=== PATIENT | female | born 1945 | race Caucasian/White ===

== ENCOUNTER 2016-12-29 16:19 | Observation (INO) | payer MEDICARE, OTHER ==
[2016-12-29] MEDS ORDERED: Sodium Chloride 0.9% 1,000 ML IV ONE (16:46)
[2016-12-29] MEDS ORDERED: Sodium Chloride 0.9% 2.5 ML Syringe FLUSH PRN (16:46)
[2016-12-29] MEDS ORDERED: Ketorolac 30 MG/ML SDV IVPUSH ONE (16:46)
[2016-12-29] MEDS ORDERED: Sodium Chloride 0.9% 10 ML Syringe FLUSH PRN (16:46)
--- NOTE | 2016-12-29 16:50 | EDM.PDOC ---
[id number] Chief Complaint: Chest Pain Stated Complaint: CHEST PAIN Time Seen by Provider: 12/29/16 16:25 - Related Data Allergies Allergy/AdvReac Type Severity Reaction Status Date / Time amoxicillin Allergy Hives Verified 12/29/16 16:24 Penicillins Allergy Hives Verified 12/29/16 16:24 IV contrast Allergy Hives Uncoded 12/29/16 18:49 Home Meds: Home Meds Aspirin 81 mg PO DAILY 11/02/15 [History] Levothyroxine 75 mcg PO DAILY 11/02/15 [History] Course - Vital Signs Last Recorded V/S: Last Vital Signs Temp 36.6 C 12/30/16 04:00 Pulse 60 12/30/16 04:00 Resp 14 12/30/16 04:00 BP 108/52 L 12/30/16 04:00 Pulse Ox 96 12/30/16 04:00 - Orders/Labs/Meds Orders: Active Orders 24 hr Category Date Time Status Cardiac Monitoring [RC] Q8H Care 12/29/16 16:44 Active EKG Documentation Completion [RC] STAT Care 12/29/16 16:44 Active Pulse Oximetry [RC] ASDIRECTED Care 12/29/16 16:44 Active Ang Chest [CT] Stat Exams 12/29/16 17:52 Taken Chest 2V [CR] Stat Exams 12/29/16 16:46 Taken Sodium Chloride 0.9% [Saline Flush] Med 12/29/16 16:46 Active 10 ml FLUSH ASDIRECTED PRN Sodium Chloride 0.9% [Saline Flush] Med 12/29/16 16:46 Active 2.5 ml FLUSH ASDIRECTED PRN Saline Lock Insert [OM.PC] Stat Oth 12/29/16 16:44 Ordered Medication Orders Acetaminophen (Tylenol) 650 mg PO Q4H PRN PRN Reason: Pain (Mild 1-3)/fever Aspirin (Aspirin) 81 mg PO DAILY [facility] Levothyroxine Sodium (Levothyroxine) 75 mcg PO DAILY@0700 LIBAN Last Admin: 12/30/16 06:43 Dose: 75 mcg Oxycodone/Acetaminophen (Percocet 325-10 Mg) 1 tab PO Q4H PRN PRN Reason: Pain Last Admin: 12/29/16 22:40 Dose: 1 tab Sodium Chloride (Saline Flush) 10 ml FLUSH ASDIRECTED PRN PRN Reason: Keep Vein Open Last Admin: 12/29/16 17:02 Dose: 10 ml Sodium Chloride (Saline Flush) 2.5 ml FLUSH ASDIRECTED PRN PRN Reason: Keep Vein Open Last Admin: 12/29/16 17:02 Dose: 2.5 ml Temazepam (Restoril) 15 mg PO BEDTIME PRN PRN Reason: Sleep Labs: Laboratory Tests 12/29/16 12/29/16 12/29/16 Range/Units 16:32 16:32 16:32 WBC 11.51 H (4.0-11.0) K/uL RBC 4.07 L (4.30-5.90) M/uL Hgb 13.1 (12.0-16.0) g/dL Hct 39.1 (36.0-46.0) % MCV 96.1 (80.0-98.0) fL MCH 32.2 H (27.0-32.0) pg MCHC 33.5 (31.0-37.0) g/dL RDW Std Deviation 48.8 (28.0-62.0) fl RDW Coeff of Nadine 14 (11.0-15.0) % Plt Count 203 (150-400) K/uL MPV 9.80 (7.40-12.00) fL Neut % (Auto) 77.5 (48.0-80.0) % Lymph % (Auto) 12.7 L (16.0-40.0) % [place] % (Auto) 8.0 (0.0-15.0) % Eos % (Auto) 1.6 (0.0-7.0) % Baso % (Auto) 0.2 (0.0-1.5) % Neut # (Auto) 8.9 H (1.4-5.7) K/uL Lymph # (Auto) 1.5 (0.6-2.4) K/uL [place] # (Auto) 0.9 H (0.0-0.8) K/uL Eos # (Auto) 0.2 (0.0-0.7) K/uL Baso # (Auto) 0.0 (0.0-0.1) K/uL Nucleated RBC % 0.0 /100WBC Nucleated RBCs # 0 K/uL INR 0.96 (0.86-1.11) D-Dimer, Quantitative 0.90 H (0.0-0.52) mg/LFEU Lactate 0.9 (0.20-2.00) mmol/L Sodium (136-146) mmol/L Potassium (3.5-5.1) mmol/L Chloride (98-110) mmol/L Carbon Dioxide (21-31) mmol/L BUN (6.0-23.0) mg/dL Creatinine (0.6-1.5) mg/dL Est Cr Clr Drug Dosing mL/min Estimated GFR (MDRD) ml/min Glucose (60-110) mg/dL Calcium (8.8-10.8) mg/dL Total Bilirubin (0.1-1.5) mg/dL AST (5-40) IU/L ALT (8-54) IU/L Alkaline Phosphatase (40-150) Troponin I (0.0-0.29) NG/ML Total Protein (6.0-8.0) g/dL Albumin (3.4-4.8) g/dL Globulin (2.0-3.5) g/dL Albumin/Globulin Ratio (1.3-2.8) Urine Color Urine Appearance Urine pH (5.0-8.0) Ur Specific [place] (1.001-1.035) Urine Protein (NEGATIVE) mg/dL Urine Glucose (UA) (NEGATIVE) mg/dL Urine Ketones (NEGATIVE) mg/dL Urine Occult Blood (NEGATIVE) Urine Nitrite (NEGATIVE) Urine Bilirubin (NEGATIVE) Urine Urobilinogen (<2.0) EU/dL Ur Leukocyte Esterase (NEGATIVE) Urine RBC (0-2/HPF) Urine WBC (0-5/HPF) Ur Epithelial Cells (NONE-FEW) Urine Bacteria (NEGATIVE) 12/29/16 12/29/16 12/29/16 Range/Units 16:32 16:32 18:44 WBC (4.0-11.0) K/uL RBC (4.30-5.90) M/uL Hgb (12.0-16.0) g/dL Hct (36.0-46.0) % MCV (80.0-98.0) fL MCH (27.0-32.0) pg MCHC (31.0-37.0) g/dL RDW Std Deviation (28.0-62.0) fl RDW Coeff of Nadine (11.0-15.0) % Plt Count (150-400) K/uL MPV (7.40-12.00) fL Neut % (Auto) (48.0-80.0) % Lymph % (Auto) (16.0-40.0) % [place] % (Auto) (0.0-15.0) % Eos % (Auto) (0.0-7.0) % Baso % (Auto) (0.0-1.5) % Neut # (Auto) (1.4-5.7) K/uL Lymph # (Auto) (0.6-2.4) K/uL [place] # (Auto) (0.0-0.8) K/uL Eos # (Auto) (0.0-0.7) K/uL Baso # (Auto) (0.0-0.1) K/uL Nucleated RBC % /100WBC Nucleated RBCs # K/uL INR (0.86-1.11) D-Dimer, Quantitative (0.0-0.52) mg/LFEU Lactate (0.20-2.00) mmol/L Sodium 138 (136-146) mmol/L Potassium 4.1 (3.5-5.1) mmol/L Chloride 106 (98-110) mmol/L Carbon Dioxide 20 L (21-31) mmol/L BUN 14 (6.0-23.0) mg/dL Creatinine 1.2 (0.6-1.5) mg/dL Est Cr Clr Drug Dosing 36.05 mL/min Estimated GFR (MDRD) 44.0 ml/min Glucose 105 (60-110) mg/dL Calcium 9.6 (8.8-10.8) mg/dL Total Bilirubin 0.8 (0.1-1.5) mg/dL AST 16 (5-40) IU/L ALT 11 (8-54) IU/L Alkaline Phosphatase 66 (40-150) Troponin I < 0.10 (0.0-0.29) NG/ML Total Protein 8.6 H (6.0-8.0) g/dL Albumin 4.0 (3.4-4.8) g/dL Globulin 4.6 H (2.0-3.5) g/dL Albumin/Globulin Ratio 0.9 L (1.3-2.8) Urine Color YELLOW Urine Appearance CLEAR Urine pH 7.0 (5.0-8.0) Ur Specific [place] <= 1.005 (1.001-1.035) Urine Protein NEGATIVE (NEGATIVE) mg/dL Urine Glucose (UA) NEGATIVE (NEGATIVE) mg/dL Urine Ketones NEGATIVE (NEGATIVE) mg/dL Urine Occult Blood NEGATIVE (NEGATIVE) Urine Nitrite NEGATIVE (NEGATIVE) Urine Bilirubin NEGATIVE (NEGATIVE) Urine Urobilinogen 0.2 (<2.0) EU/dL Ur Leukocyte Esterase NEGATIVE (NEGATIVE) Urine RBC 0-1 (0-2/HPF) Urine WBC 0-1 (0-5/HPF) Ur Epithelial Cells OCCASIONAL (NONE-FEW) Urine Bacteria RARE (NEGATIVE) Meds: Medications Generic Name Dose Route Start Last Admin Trade Name Elijahq PRN Reason Stop Dose Admin Acetaminophen 650 mg 12/29/16 22:13 Tylenol PO Q4H PRN Pain (Mild 1-3)/fever Aspirin 81 mg 12/30/16 09:00 Aspirin PO DAILY LIBAN Levothyroxine Sodium 75 mcg 12/30/16 07:00 12/30/16 06:43 Levothyroxine PO 75 mcg DAILY@0700 LIBAN Administration Oxycodone/Acetaminophen 1 tab 12/29/16 22:13 12/29/16 22:40 Percocet 325-10 Mg PO 1 tab Q4H PRN Administration Pain Sodium Chloride 10 ml 12/29/16 16:46 12/29/16 17:02 Saline Flush FLUSH 10 ml ASDIRECTED PRN Administration Keep Vein Open Sodium Chloride 2.5 ml 12/29/16 16:46 12/29/16 17:02 Saline Flush FLUSH 2.5 ml ASDIRECTED PRN Administration Keep Vein Open Temazepam 15 mg 12/29/16 22:13 Restoril PO BEDTIME PRN Sleep Discontinued Medications Generic Name Dose Route Start Last Admin Trade Name Freq PRN Reason Stop Dose Admin Aspirin 81 mg 12/29/16 22:15 12/29/16 22:30 Aspirin PO Not Given DAILY LIBAN Diphenhydramine HCl 50 mg 12/29/16 18:13 12/29/16 18:35 Benadryl IVPUSH 12/29/16 18:14 50 mg ONETIME ONE Administration Sodium Chloride 1,000 mls @ 999 mls/hr 12/29/16 16:46 12/29/16 17:03 Normal Saline IV 12/29/16 17:46 999 mls/hr STAT ONE Administration Iodixanol 50 ml 12/29/16 18:20 12/29/16 18:22 Visipaque 320 IVPUSH 12/29/16 18:21 50 ml ONETIME STA Administration Ketorolac Tromethamine 30 mg 12/29/16 16:46 12/29/16 17:02 Toradol IVPUSH 12/29/16 16:47 30 mg ONETIME ONE Administration Levothyroxine Sodium 750 mcg 12/30/16 09:00 Levothyroxine PO DAILY LIBAN Methylprednisolone Sodium Succinate 125 mg 12/29/16 18:13 12/29/16 18:34 Solu-Medrol IVPUSH 12/29/16 18:14 125 mg ONETIME ONE Administration Departure - Departure Time of Disposition: 20:16 Disposition: Admitted As Inpatient 64 Condition: good Clinical Impression: Right-sided chest wall pain, COPD (chronic obstructive pulmonary disease) - My Orders Last 24 Hours: My Active Orders 12/29/16 16:44 Cardiac Monitoring [RC] Q8H EKG Documentation Completion [RC] STAT Pulse Oximetry [RC] ASDIRECTED Saline Lock Insert [OM.PC] Stat 12/29/16 16:46 Chest 2V [CR] Stat Sodium Chloride 0.9% [Saline Flush] 10 ml FLUSH ASDIRECTED PRN Sodium Chloride 0.9% [Saline Flush] 2.5 ml FLUSH ASDIRECTED PRN 12/29/16 17:52 Ang Chest [CT] Stat - Assessment/Plan Last 24 Hours: My Active Orders 12/29/16 16:44 Cardiac Monitoring [RC] Q8H EKG Documentation Completion [RC] STAT Pulse Oximetry [RC] ASDIRECTED Saline Lock Insert [OM.PC] Stat 12/29/16 16:46 Chest 2V [CR] Stat Sodium Chloride 0.9% [Saline Flush] 10 ml FLUSH ASDIRECTED PRN Sodium Chloride 0.9% [Saline Flush] 2.5 ml FLUSH ASDIRECTED PRN 12/29/16 17:52 Ang Chest [CT] Stat <Tasha Smith - Last Filed: 12/30/16 07:02> ED HPI GENERAL MEDICAL PROBLEM - History of Present Illness INITIAL COMMENTS - FREE TEXT/NARRATIVE: HISTORY AND PHYSICAL: History of present illness: The patient is a 71-year-old female who presents with complaints of right lateral chest wall pain that started yesterday about 4 PM. According to the patient she had a normal day yesterday and was at work and just felt somewhat fatigued and run down and left work at the usual time and around 4 PM she started feeling this discomfort which gradually started and increased. She felt more pain with certain movements and with deep breaths but she had no cough fever chills left-sided chest pain vomiting or abdominal pain. She has no flank pain or urinary complaints of hematuria dysuria or frequency. She still has her gallbladder but has had no history of food intolerance. Patient said she took some Tylenol and did not sleep very well as it was discomforting but she woke up this morning and felt a little better so she went to work. As the day progressed she said the pain was getting worse and she came here for evaluation. She has had no recent trauma to the area and has had no recent upper respiratory infections. The patient is a smoker for a long period time and has not had a smokers cough or any diagnosed pulmonary or cardiac disorders. She says if she lays on that right side she also feels more short of breath and more discomfort. Patient says that she feels short of breath because she cannot take a deep breath due to the pain. Patient has not noticed any rashes in the area and has no midline back pain. The patient states she has a history of breaking ribs on the right side in the past long since healed and it was not recently. Review of systems: As per history of present illness and below otherwise all systems reviewed and negative. Past medical history: As per history of present illness and as reviewed below otherwise noncontributory. Surgical history: As per history of present illness and as reviewed below otherwise noncontributory. Social history: No reported history of drug or alcohol abuse. Family history: As per history of present illness and as reviewed below otherwise noncontributory. Physical exam: General: Well-developed thin female who is nontoxic and speaking clearly without breathlessness. Vital signs have been noted by me. HEENT: Atraumatic, normocephalic, pupils reactive, negative for conjunctival pallor or scleral icterus, mucous membranes dry, throat clear, neck supple, nontender, trachea midline. There is no cervical adenopathy or nuchal rigidity, at the left submandibular area the patient has an old right ovary mobile mass which she says she has had for years and is not new. Lungs: Clear to auscultation with some diminished breath sounds in the bases, breath sounds equal bilaterally, chest nontender--on palpation I am unable to reproduce the pain in the area she says is discomforting and there is no rash redness crepitus or palpable abnormalities. Heart: S1S2, regular, negative for clicks, rubs, or JVD. Abdomen: Soft, nondistended, nontender. Bowel sounds are normoactive and there is specifically no right upper quadrant tenderness, throughout the exam there is no rebound or guarding Negative for masses or hepatosplenomegaly. Negative for costovertebral tenderness. Pelvis: Stable nontender. Genitourinary: Deferred. Rectal: Deferred. Extremities: Atraumatic, negative for cords or calf pain. Neurovascular unremarkable. There is no pedal edema or leg asymmetry Neuro: Awake, alert, oriented. Cranial nerves II through XII unremarkable. Cerebellum unremarkable. Motor and sensory unremarkable throughout. Exam nonfocal. Diagnostics: EKG chest x-ray CBC CMP d-dimer INR lactic acid troponin UA Therapeutics: IV fluids Toradol The patient never mentioned to me or to nursing that she had an allergy to IV dye. She states that she gets a rash and she mentioned this when she was down in the CT scan room. She's been premedicated with Benadryl and Solu-Medrol. Impression: Right Chest wall/pleuritic pain, intractable; COPD Definitive disposition and diagnosis as appropriate pending reevaluation and review of above. Right Chest to Right Jaw Pain Score (Numeric/FACES): 5 Past Medical History HEENT History: Reports: Impaired vision Cardiovascular History: Reports: Other (see below) Other Cardiovascular History: Transferred to [place] for chest pain last year Respiratory History: Reports: Bronchitis, recurrent, COPD [employer] History: Reports: - Past Surgical History Endocrine Surgical History: Reports: Thyroidectomy Social & Family History - Family History Family Medical History: Unobtainable - Tobacco Use Smoking Status *Q: Current Every Day Smoker Years of Tobacco use: 55 Packs/Tins Daily: 1 - Recreational Drug Use Recreational Drug Use: No Drug Use in Last 12 Months: No ED ROS GENERAL - Review of Systems Review Of Systems: ROS reveals no pertinent complaints other than HPI. ED EXAM, GENERAL - Physical Exam Exam: See Below (See dictation) Course - Orders/Labs/Meds Labs: Laboratory Tests 12/29/16 12/29/16 12/29/16 Range/Units 16:32 16:32 16:32 WBC 11.51 H (4.0-11.0) K/uL RBC 4.07 L (4.30-5.90) M/uL Hgb 13.1 (12.0-16.0) g/dL Hct 39.1 (36.0-46.0) % MCV 96.1 (80.0-98.0) fL MCH 32.2 H (27.0-32.0) pg MCHC 33.5 (31.0-37.0) g/dL RDW Std Deviation 48.8 (28.0-62.0) fl RDW Coeff of Nadine 14 (11.0-15.0) % Plt Count 203 (150-400) K/uL MPV 9.80 (7.40-12.00) fL Neut % (Auto) 77.5 (48.0-80.0) % Lymph % (Auto) 12.7 L (16.0-40.0) % [place] % (Auto) 8.0 (0.0-15.0) % Eos % (Auto) 1.6 (0.0-7.0) % Baso % (Auto) 0.2 (0.0-1.5) % Neut # (Auto) 8.9 H (1.4-5.7) K/uL Lymph # (Auto) 1.5 (0.6-2.4) K/uL [place] # (Auto) 0.9 H (0.0-0.8) K/uL Eos # (Auto) 0.2 (0.0-0.7) K/uL Baso # (Auto) 0.0 (0.0-0.1) K/uL Nucleated RBC % 0.0 /100WBC Nucleated RBCs # 0 K/uL INR 0.96 (0.86-1.11) D-Dimer, Quantitative 0.90 H (0.0-0.52) mg/LFEU Lactate 0.9 (0.20-2.00) mmol/L Sodium (136-146) mmol/L Potassium (3.5-5.1) mmol/L Chloride (98-110) mmol/L Carbon Dioxide (21-31) mmol/L BUN (6.0-23.0) mg/dL Creatinine (0.6-1.5) mg/dL Est Cr Clr Drug Dosing mL/min Estimated GFR (MDRD) ml/min Glucose (60-110) mg/dL Calcium (8.8-10.8) mg/dL Total Bilirubin (0.1-1.5) mg/dL AST (5-40) IU/L ALT (8-54) IU/L Alkaline Phosphatase (40-150) Troponin I (0.0-0.29) NG/ML Total Protein (6.0-8.0) g/dL Albumin (3.4-4.8) g/dL Globulin (2.0-3.5) g/dL Albumin/Globulin Ratio (1.3-2.8) Urine Color Urine Appearance Urine pH (5.0-8.0) Ur Specific [place] (1.001-1.035) Urine Protein (NEGATIVE) mg/dL Urine Glucose (UA) (NEGATIVE) mg/dL Urine Ketones (NEGATIVE) mg/dL Urine Occult Blood (NEGATIVE) Urine Nitrite (NEGATIVE) Urine Bilirubin (NEGATIVE) Urine Urobilinogen (<2.0) EU/dL Ur Leukocyte Esterase (NEGATIVE) Urine RBC (0-2/HPF) Urine WBC (0-5/HPF) Ur Epithelial Cells (NONE-FEW) Urine Bacteria (NEGATIVE) 12/29/16 12/29/16 12/29/16 Range/Units 16:32 16:32 18:44 WBC (4.0-11.0) K/uL RBC (4.30-5.90) M/uL Hgb (12.0-16.0) g/dL Hct (36.0-46.0) % MCV (80.0-98.0) fL MCH (27.0-32.0) pg MCHC (31.0-37.0) g/dL RDW Std Deviation (28.0-62.0) fl RDW Coeff of Nadine (11.0-15.0) % Plt Count (150-400) K/uL MPV (7.40-12.00) fL Neut % (Auto) (48.0-80.0) % Lymph % (Auto) (16.0-40.0) % [place] % (Auto) (0.0-15.0) % Eos % (Auto) (0.0-7.0) % Baso % (Auto) (0.0-1.5) % Neut # (Auto) (1.4-5.7) K/uL Lymph # (Auto) (0.6-2.4) K/uL [place] # (Auto) (0.0-0.8) K/uL Eos # (Auto) (0.0-0.7) K/uL Baso # (Auto) (0.0-0.1) K/uL Nucleated RBC % /100WBC Nucleated RBCs # K/uL INR (0.86-1.11) D-Dimer, Quantitative (0.0-0.52) mg/LFEU Lactate (0.20-2.00) mmol/L Sodium 138 (136-146) mmol/L Potassium 4.1 (3.5-5.1) mmol/L Chloride 106 (98-110) mmol/L Carbon Dioxide 20 L (21-31) mmol/L BUN 14 (6.0-23.0) mg/dL Creatinine 1.2 (0.6-1.5) mg/dL Est Cr Clr Drug Dosing 36.05 mL/min Estimated GFR (MDRD) 44.0 ml/min Glucose 105 (60-110) mg/dL Calcium 9.6 (8.8-10.8) mg/dL Total Bilirubin 0.8 (0.1-1.5) mg/dL AST 16 (5-40) IU/L ALT 11 (8-54) IU/L Alkaline Phosphatase 66 (40-150) Troponin I < 0.10 (0.0-0.29) NG/ML Total Protein 8.6 H (6.0-8.0) g/dL Albumin 4.0 (3.4-4.8) g/dL Globulin 4.6 H (2.0-3.5) g/dL Albumin/Globulin Ratio 0.9 L (1.3-2.8) Urine Color YELLOW Urine Appearance CLEAR Urine pH 7.0 (5.0-8.0) Ur Specific [place] <= 1.005 (1.001-1.035) Urine Protein NEGATIVE (NEGATIVE) mg/dL Urine Glucose (UA) NEGATIVE (NEGATIVE) mg/dL Urine Ketones NEGATIVE (NEGATIVE) mg/dL Urine Occult Blood NEGATIVE (NEGATIVE) Urine Nitrite NEGATIVE (NEGATIVE) Urine Bilirubin NEGATIVE (NEGATIVE) Urine Urobilinogen 0.2 (<2.0) EU/dL Ur Leukocyte Esterase NEGATIVE (NEGATIVE) Urine RBC 0-1 (0-2/HPF) Urine WBC 0-1 (0-5/HPF) Ur Epithelial Cells OCCASIONAL (NONE-FEW) Urine Bacteria RARE (NEGATIVE) Meds: Medications Generic Name Dose Route Start Last Admin Trade Name Freq PRN Reason Stop Dose Admin Acetaminophen 650 mg 12/29/16 22:13 Tylenol PO Q4H PRN Pain (Mild 1-3)/fever Aspirin 81 mg 12/30/16 09:00 Aspirin PO DAILY LIBAN Levothyroxine Sodium 75 mcg 12/30/16 07:00 12/30/16 06:43 Levothyroxine PO 75 mcg DAILY@0700 LIBAN Administration Oxycodone/Acetaminophen 1 tab 12/29/16 22:13 12/29/16 22:40 Percocet 325-10 Mg PO 1 tab Q4H PRN Administration Pain Sodium Chloride 10 ml 12/29/16 16:46 12/29/16 17:02 Saline Flush FLUSH 10 ml ASDIRECTED PRN Administration Keep Vein Open Sodium Chloride 2.5 ml 12/29/16 16:46 12/29/16 17:02 Saline Flush FLUSH 2.5 ml ASDIRECTED PRN Administration Keep Vein Open Temazepam 15 mg 12/29/16 22:13 Restoril PO BEDTIME PRN Sleep Discontinued Medications Generic Name Dose Route Start Last Admin Trade Name Freq PRN Reason Stop Dose Admin Aspirin 81 mg 12/29/16 22:15 12/29/16 22:30 Aspirin PO Not Given DAILY LIBAN Diphenhydramine HCl 50 mg 12/29/16 18:13 12/29/16 18:35 Benadryl IVPUSH 12/29/16 18:14 50 mg ONETIME ONE Administration Sodium Chloride 1,000 mls @ 999 mls/hr 12/29/16 16:46 12/29/16 17:03 Normal Saline IV 12/29/16 17:46 999 mls/hr STAT ONE Administration Iodixanol 50 ml 12/29/16 18:20 12/29/16 18:22 Visipaque 320 IVPUSH 12/29/16 18:21 50 ml ONETIME STA Administration Ketorolac Tromethamine 30 mg 12/29/16 16:46 12/29/16 17:02 Toradol IVPUSH 12/29/16 16:47 30 mg ONETIME ONE Administration Levothyroxine Sodium 750 mcg 12/30/16 09:00 Levothyroxine PO DAILY LIBAN Methylprednisolone Sodium Succinate 125 mg 12/29/16 18:13 12/29/16 18:34 Solu-Medrol IVPUSH 12/29/16 18:14 125 mg ONETIME ONE Administration Departure - Departure Condition: good
[2016-12-29] MEDS ORDERED: methylPREDNISolone Sodium Succinate 125 MG/2 ML SDV IVPUSH ONE (18:13)
[2016-12-29] MEDS ORDERED: diphenhydrAMINE 50 MG/ML SDV IVPUSH ONE (18:13)
[2016-12-29] MEDS ORDERED: Iodixanol 652 MG/ML 50 ML Vial IVPUSH STA (18:20)
--- NOTE | 2016-12-29 22:12 | PCM.HP ---
H&P History of Present Illness - General Date of Service: 12/29/16 Admit Problem/Dx: Admission Diagnosis/Problem Admission Diagnosis/Problem Chest pain Source of Information: Patient, Family, Old records, Provider - History of Present Illness Initial Comments - Free Text/Narative: she presented with right sided chest pain x greater than 24 hours. It hurts to take a deep breath. Right Chest to Right Jaw Pain Score (Numeric/FACES): 6 - Related Data Allergies/Adverse Reactions: Allergies Allergy/AdvReac Type Severity Reaction Status Date / Time amoxicillin Allergy Hives Verified 12/29/16 16:24 Penicillins Allergy Hives Verified 12/29/16 16:24 IV contrast Allergy Hives Uncoded 12/29/16 18:49 Home Medications: Home Meds Aspirin 81 mg PO DAILY 11/02/15 [History] Levothyroxine 0.75 mg PO DAILY 11/02/15 [History] Past Medical History HEENT History: Reports: Impaired vision Cardiovascular History: Reports: Other (see below) Other Cardiovascular History: Transferred to [place] for chest pain last year Respiratory History: Reports: Bronchitis, recurrent, COPD [employer]ER History: Reports: Neurological History: Denies: Alzheimers disease, Brain injury, Cerebral palsy Endocrine/Metabolic History: Denies: [place]'s disease, Diabetes, type I, Diabetes, type II Oncologic (Cancer) History: Reports: None - Past Surgical History Endocrine Surgical History: Reports: Thyroidectomy Social & Family History - Family History Family Medical History: Unobtainable - Tobacco Use Smoking Status *Q: Current Every Day Smoker Years of Tobacco use: 55 Packs/Tins Daily: 1 - Recreational Drug Use Recreational Drug Use: No Drug Use in Last 12 Months: No H&P Review of Systems - Review of Systems: Review Of Systems: See Below General: Denies: fever HEENT: Denies: sore throat Pulmonary: Reports: Cough (she had a cough over a week ago; it seems to have resolved.). Denies: Shortness of Breath, Wheezing Cardiovascular: Reports: chest pain (right sided) Gastrointestinal: Denies: Abdominal pain, Black stool, Hematemesis, Hematochezia , Nausea, Stool incontinence Genitourinary: Denies: dysuria, hematuria Skin: Denies: cyanosis Psychiatric: Denies: confusion Exam - Exam Exam: See Below - Vital Signs Vital Signs: Last Vital Signs Temp 97.8 F 12/29/16 22:00 Pulse 76 12/29/16 22:00 Resp 18 12/29/16 22:00 BP 156/70 H 12/29/16 22:00 Pulse Ox 94 L 12/29/16 22:00 Weight: 59.1 kg - Exam General: alert, oriented, cooperative HEENT: EOMI Neck: supple, trachea midline, lymphadenopathy Lungs: Clear to auscultation, Normal respiratory effort. No: Crackles, Rales Cardiovascular: regular rate, regular rhythm Abdomen: soft. No: rebound, tenderness (Female) Exam: Deferred Rectal (Female) Exam: Deferred Extremities: No: edema Neuro Extensive - Motor, Sensory, Reflexes: CN II-XII intact Psychiatric: alert, normal affect Physical Exam Comments:: slight tenderness over the right lateral chest. - Patient Data Result Diagrams: 12/29/16 16:32 12/29/16 16:32 *Q Meaningful Use (ADM) - VTE *Q VTE Criteria *Q: - Stroke *Q Stroke Criteria *Q: - AMI *Q AMI Criteria *Q: - Problem List (1) Right-sided chest wall pain SNOMED Code(s): 109049322 ICD Code: R07.89 - OTHER CHEST PAIN Status: Acute Current Visit: Yes Problem List Initiated/Reviewed/Updated: Yes Orders Last 24hrs: Medication Orders Sodium Chloride (Saline Flush) 10 ml FLUSH ASDIRECTED PRN PRN Reason: Keep Vein Open Last Admin: 12/29/16 17:02 Dose: 10 ml Sodium Chloride (Saline Flush) 2.5 ml FLUSH ASDIRECTED PRN PRN Reason: Keep Vein Open Last Admin: 12/29/16 17:02 Dose: 2.5 ml Assessment/Plan Comment:: observation serial enzymes
[2016-12-29] MEDS ORDERED: Acetaminophen 325 MG Tab PO PRN (22:13)
[2016-12-29] MEDS ORDERED: Temazepam 15 MG Cap PO PRN (22:13)
[2016-12-29] MEDS ORDERED: Aspirin 81 MG Tab.Chew PO SCH (22:15)
[2016-12-29] MEDS: Acetaminophen/oxyCODONE 325-10 MG Tab PO PRN (22:40)
[2016-12-30] MEDS ORDERED: Levothyroxine 25 MCG Tab PO SCH ×2 (07:00→09:00)
[2016-12-30 08:14] VITALS: BP 127/49
[2016-12-30] MEDS ORDERED: Aspirin 81 MG Tab.Chew PO SCH (09:00)
[2016-12-30] MEDS: Acetaminophen/oxyCODONE 325-10 MG Tab PO PRN (09:03)
--- NOTE | 2016-12-30 12:07 | PCM.DCSUM1 ---
[id number] - Discharge Data Discharge Date: 12/30/16 Discharge Disposition: Home, Self-Care 01 Condition: Fair - Discharge Diagnosis/Problem(s) (1) Right-sided chest wall pain SNOMED Code(s): 729673495 ICD Code: R07.89 - OTHER CHEST PAIN Status: Acute - Patient Summary/Data Hospital Course: She was given percocet for pain. She had adequate pain control at discharge. She reported that recently she had a cough that is improved. However she has right sided chest pain near the area of the right lower axilla; it hurts to cough. Serial troponins were normal she is improved at discharge. Impression musculoskeletal chest wall pain thought related to prior URI with coughing which improved spontaneously. Percocet 10/ 325 1 po q 4 hours prn #20; discussed risk of addiction Sven Shannon MD - Discharge Plan Prescriptions/Med Rec: oxyCODONE HCl/Acetaminophen [Percocet 10-325 mg Tablet] 1 each PO Q4H PRN #20 tablet PRN Reason: Pain Home Medications: Home Meds Aspirin 81 mg PO DAILY 11/02/15 [History] Levothyroxine 75 mcg PO DAILY 11/02/15 [History] oxyCODONE HCl/Acetaminophen [Percocet 10-325 mg Tablet] 1 each PO Q4H PRN #20 tablet 12/30/16 [Rx] Patient Handouts: Acetaminophen; Oxycodone tablets, Chest Wall Pain, Easy-to- Read - Patient Data Vitals - Most Recent: Last Vital Signs Temp 97.1 F 12/30/16 08:00 Pulse 70 12/30/16 08:00 Resp 16 12/30/16 08:00 BP 127/49 L 12/30/16 08:00 Pulse Ox 92 L 12/30/16 08:00 Weight - Most Recent: 59.1 kg I&O - Last 24 hours: Intake & Output 12/29/16 12/30/16 12/30/16 22:59 06:59 14:59 Intake Total 450 Output Total 500 Balance -50 Lab Results - Last 24 hrs: Laboratory Results - last 24 hr 12/29/16 12/30/16 12/30/16 Range/Units 23:15 05:00 05:00 Magnesium 1.8 (1.5-2.3) mEq/L Troponin I < 0.10 < 0.10 (0.0-0.29) NG/ML Med Orders - Current: Current Medications Acetaminophen (Tylenol) 650 mg PO Q4H PRN PRN Reason: Pain (Mild 1-3)/fever Aspirin (Aspirin) 81 mg PO DAILY [facility] Last Admin: 12/30/16 08:59 Dose: 81 mg Levothyroxine Sodium (Levothyroxine) 75 mcg PO DAILY@0700 [facility] Last Admin: 12/30/16 06:43 Dose: 75 mcg Oxycodone/Acetaminophen (Percocet 325-10 Mg) 1 tab PO Q4H PRN PRN Reason: Pain Last Admin: 12/30/16 09:03 Dose: 1 tab Sodium Chloride (Saline Flush) 10 ml FLUSH ASDIRECTED PRN PRN Reason: Keep Vein Open Last Admin: 12/29/16 17:02 Dose: 10 ml Sodium Chloride (Saline Flush) 2.5 ml FLUSH ASDIRECTED PRN PRN Reason: Keep Vein Open Last Admin: 12/29/16 17:02 Dose: 2.5 ml Temazepam (Restoril) 15 mg PO BEDTIME PRN PRN Reason: Sleep Discontinued Medications Aspirin (Aspirin) 81 mg PO DAILY [facility] Last Admin: 12/29/16 22:30 Dose: Not Given Diphenhydramine HCl (Benadryl) 50 mg IVPUSH ONETIME ONE Stop: 12/29/16 18:14 Last Admin: 12/29/16 18:35 Dose: 50 mg Sodium Chloride (Normal Saline) 1,000 mls @ 999 mls/hr IV STAT ONE Stop: 12/29/16 17:46 Last Admin: 12/29/16 17:03 Dose: 999 mls/hr Iodixanol (Visipaque 320) 50 ml IVPUSH ONETIME STA Stop: 12/29/16 18:21 Last Admin: 12/29/16 18:22 Dose: 50 ml Ketorolac Tromethamine (Toradol) 30 mg IVPUSH ONETIME ONE Stop: 12/29/16 16:47 Last Admin: 12/29/16 17:02 Dose: 30 mg Levothyroxine Sodium (Levothyroxine) 750 mcg PO DAILY [facility] Methylprednisolone Sodium Succinate (Solu-Medrol) 125 mg IVPUSH ONETIME ONE Stop: 03/24/17 18:14 Last Admin: 12/29/16 18:34 Dose: 125 mg - Exam General: Reports: alert, oriented *Q Meaningful Use (DIS) - VTE *Q VTE Criteria *Q: - Stroke *Q Stroke Criteria *Q: - AMI *Q AMI Criteria *Q:
--- NOTE | 2017-01-01 15:10 | CR ---
EXAM DATE: 12/29/16 PATIENT'S AGE: 71 Patient: BERNARD MARTÍNEZ Facility: [place], [place] Site . Site : 1945 Study: XRay Chest [id number] 5:27:04 PM Ordering Physician: Sarah Cordova Final Report: INDICATION: Pain, shortness of breath TECHNIQUE: Chest 2 views. COMPARISON: November 02, 2015 FINDINGS: Cardiovascular and mediastinum: Heart size and vasculature are normal in caliber and appearance. Mediastinum is within normal limits. Lungs and pleural spaces: Chronic appearing increased interstitial markings at both lung bases. Bi apical pleural thickening likely due to prior granulomatous disease. No sign of new infiltrate or mass. No sign of pleural effusion. No pneumothorax. Bones and soft tissues: Dextroscoliosis of the thoracic spine. IMPRESSION: No sign of acute disease. Dictated by Kiki Matson MD @ Dec 29 2016 5:51PM (Electronic Signature) Report Signed by Proxy and Original Signed Document filed in the Medical Record. MTDD
--- NOTE | 2017-01-01 15:11 | CT ---
EXAM DATE: 12/29/16 PATIENT'S AGE: 71 Patient: BERNARD MARTÍNEZ Facility: [place], [place] Site . Site : 1945 Study: CT Chest Angio [id number]/24/2017 6:41:53 PM Ordering Physician: Sarah Cordova Final Report: INDICATION: Right-sided chest pain, positive D-dimer TECHNIQUE: CT chest pulmonary PE protocol acquired with 50 cc Visipaque a IV contrast. COMPARISON: None FINDINGS: Cardiovascular structures: Normal vascular enhancement of the pulmonary arteries , no sign of pulmonary embolism. Heart size is normal. Minimal coronary artery calcifications. No sign of aneurysm or dissection in the thoracic aorta. Small hiatal hernia. Mediastinum and yumiko: No mass or adenopathy. Lungs: Emphysema. Honeycombing at both lung bases. Pleura and pericardium: No effusions. Chest wall and axilla: 1.1 centimeter left hilar lymph node. Shotty mediastinal and right hilar lymph nodes. Upper abdomen: Unremarkable. Bones: No significant findings. IMPRESSION: 1. No pulmonary embolism, aortic dissection, or pneumonia. 2. Emphysema with honeycombing at both lung bases. 3. Left hilar adenopathy of unknown etiology. 4. Coronary artery disease. 5. Small hiatal hernia. Dictated by Kiki Matson MD @ Dec 29 2016 7:03PM (Electronic Signature) Report Signed by Proxy and Original Signed Document filed in the Medical Record. [facility] HOSPITALNarayan
== END 2016-12-30 13:30 | disposition home or self-care (01) ==
LOC: MW.ED 16:19 → MW.MS 20:17
PROVIDERS: ADMIT Family Medicine; ATTEND Family Medicine
DX: R07.89 Other chest pain (principal); J44.9 Chronic obstructive pulmonary disease, unspecified; Z88.0 Allergy status to penicillin; Z88.1 Allergy status to other antibiotic agents; F17.200 Nicotine dependence, unspecified, uncomplicated; Z91.041 Radiographic dye allergy status; Z79.82 Long term (current) use of aspirin; Z79.899 Other long term (current) drug therapy
CPT/HCPCS: 36415; 71020; 71275; 80053; 81001; 83605; 83735; 84484; 85025; 85379; 85610; 93005; 96361; 96374; 96375; 99285; A9270; G0378; J1200; J1885; J2930; J7040; Q9967

== ENCOUNTER 2017-05-31 17:15 | Inpatient (IN) | payer MEDICARE, OTHER ==
[2017-05-31] MEDS ORDERED: Levofloxacin/Dextrose 5%-Water 750 MG in Premix Bag 1 BAG IV SCH (17:45)
[2017-05-31] MEDS ORDERED: Albuterol 0.083% 2.5 MG/3 ML Neb Soln NEB PRN (17:45)
[2017-05-31] MEDS ORDERED: Ondansetron 4 MG Tab.DIS PO PRN (17:45)
[2017-05-31] MEDS: Sodium Chloride 0.9% 1,000 ML IV SCH (18:00)
--- NOTE | 2017-05-31 18:00 | PCM.HP ---
H&P History of Present Illness - General Date of Service: 05/31/17 Admit Problem/Dx: Admission Diagnosis/Problem Admission Diagnosis/Problem Pneumonia Source of Information: Patient History Limitations: Reports: No Limitations - History of Present Illness Initial Comments - Free Text/Narative: 72-year-old female with a medical history of hypothyroidism that is being admitted with pneumonia. Patient was transferred from [place] for further treatment of pneumonia that does not seem to be improving despite antibiotic therapy. Patient has been seen in the clinic multiple times in [place] over the past week and has been placed on ceftriaxone and azithromycin but she states that her symptoms have not improved. She has also been tried on an oral steroid which helped her feel better for a day and then her symptoms returned and have worsened over the past week. Patient endorses a dry cough and no hemoptysis. She is short of breath but denies any orthopnea. She endorses weakness and notes that she has not been eating or drinking much over the past week. She has had multiple loose stools on a daily basis and has had to wear adult diapers because of this. She denies any blood in the stool or urine and denies any black stools. She has no history of gastric ulcers. She has felt feverish although she does not have a documented temperature. She also has had a headache treated with Tylenol which seems to help. Patient denies any abdominal pain and denies any chest pain, palpitations or wheezing. She does have a significant history of tobacco use over many years smoking 1 pack per day. She does not currently have asthma or COPD and does not require the use of inhalers. She is not required any supplemental oxygen with the onset of the symptoms. She has no cardiac history. She denies any peripheral edema. Patient does not have a history of recurrent pneumonia. She states that up until this week she has been in good health. No records were sent with the patient from [place]. We will be doing a full workup on the patient as a direct admit. - Related Data Allergies/Adverse Reactions: Allergies Allergy/AdvReac Type Severity Reaction Status Date / Time amoxicillin Allergy Hives Verified 12/29/16 16:24 Penicillins Allergy Hives Verified 12/29/16 16:24 IV contrast Allergy Hives Uncoded 12/29/16 18:49 Home Medications: Home Meds Aspirin 81 mg PO DAILY 11/02/15 [History] Levothyroxine 75 mcg PO DAILY 11/02/15 [History] oxyCODONE HCl/Acetaminophen [Percocet 10-325 mg Tablet] 1 each PO Q4H PRN #20 tablet 12/30/16 [Rx] Past Medical History HEENT History: Reports: Impaired Vision Cardiovascular History: Reports: Other (See Below) Other Cardiovascular History: Transferred to [place] for chest pain last year Respiratory History: Reports: Bronchitis, Recurrent, COPD STEM SHAPER History: Reports: Musculoskeletal History: Reports: Arthritis Oncologic (Cancer) History: Reports: None - Past Surgical History Endocrine Surgical History: Reports: Thyroidectomy Social & Family History - Family History Family Medical History: Unobtainable Cardiac: Reports: [place] [facility]: Reports: Musculoskeletal: Reports: Arthritis Neurological: Reports: Alzheimers Disease Oncologic: Reports: Colon, Prostate - Tobacco Use Smoking Status *Q: Current Every Day Smoker Years of Tobacco use: 50 Packs/Tins Daily: 1 Used Tobacco, but Quit: No Second Hand Smoke Exposure: No - Caffeine Use Caffeine Use: Reports: Coffee - Recreational Drug Use Recreational Drug Use: No Drug Use in Last 12 Months: No H&P Review of Systems - Review of Systems: Review Of Systems: See Below General: Reports: Fever, Weakness, Fatigue, Decreased Appetite HEENT: Reports: Headaches Pulmonary: Reports: Shortness of Breath. Denies: Wheezing, Cough, Hemoptysis Cardiovascular: Reports: No Symptoms Gastrointestinal: Reports: Diarrhea, Decreased Appetite. Denies: Nausea, Vomiting Genitourinary: Reports: No Symptoms Musculoskeletal: Reports: No Symptoms Skin: Reports: No Symptoms Psychiatric: Reports: No Symptoms Neurological: Reports: No Symptoms, Headache, Weakness Hematologic/Lymphatic: Reports: No Symptoms Immunologic: Reports: No Symptoms Exam - Exam Exam: See Below - Vital Signs Weight: 119 lb - Exam Quality Assessment: DVT Prophylaxis (SCDs. We will continue patient's home aspirin.) General: Alert, Oriented, 4 HEENT: Conjunctiva Clear, Hearing Intact, Mucosa Moist & [place], Posterior Pharynx Clear Neck: Supple, Trachea Midline, 2 Lungs: Normal Respiratory Effort, Decreased Breath Sounds (Diffusely and bilaterally in all lung fernandez) Cardiovascular: Regular Rate, Regular Rhythm GI/Abdominal Exam: Normal Bowel Sounds, Soft, Non-Tender, No Organomegaly, No Distention, No Abnormal Bruit, No Mass Extremities: Normal Inspection, Normal Range of Motion, Non-Tender, No Pedal Edema, Normal Capillary Refill Peripheral Pulses: 2+: Radial (L), Radial (R), Posterior Tibial (L), Posterior Tibial (R) Skin: Warm, Dry, Intact Neuro Extensive - Mental Status: Alert, Oriented x3, Normal Mood/Affect, Normal Cognition Psychiatric: Alert, Normal Affect, Normal Mood *Q Meaningful Use (ADM) - VTE *Q VTE Criteria *Q: - Stroke *Q Stroke Criteria *Q: - AMI *Q AMI Criteria *Q: - Problem List (1) Community acquired pneumonia SNOMED Code(s): 064726571 ICD Code: J18.9 - PNEUMONIA, UNSPECIFIED ORGANISM Status: Acute Current Visit: Yes Problem List Initiated/Reviewed/Updated: Yes Orders Last 24hrs: Active Orders 24 hr Category Date Time Status Patient Status [ADT] Routine ADT 05/31/17 17:45 Ordered Antiembolic Devices [RC] PER UNIT ROUTINE Care 05/31/17 17:48 Ordered Height and Weight [RC] DAILY Care 05/31/17 17:45 Ordered Intake and Output [RC] QSHIFT Care 05/31/17 17:46 Ordered Notify Provider Vital Signs [RC] ASDIRECTED Care 05/31/17 17:47 Ordered Oxygen Therapy [RC] PRN Care 05/31/17 17:45 Ordered Pulse Oximetry [RC] PRN Care 05/31/17 17:46 Ordered RT Aerosol Therapy [RC] ASDIRECTED Care 05/31/17 17:48 Ordered Up With Assistance [RC] ASDIRECTED Care 05/31/17 17:45 Ordered VTE/DVT Education [RC] PER UNIT ROUTINE Care 05/31/17 17:45 Ordered Vital Signs [RC] Q4H Care 05/31/17 17:45 Ordered PT Evaluation and Treatment [CONS] Routine Cons 05/31/17 17:45 Ordered Regular Diet [DIET] Diet 05/31/17 Breakfast Ordered Chest 2V [CR] Routine Exams 05/31/17 17:45 Ordered BASIC METABOLIC PANEL,BMP [CHEM] AM Lab 06/01/17 05:11 Ordered BASIC METABOLIC PANEL,BMP [CHEM] AM Lab 06/02/17 05:11 Ordered BASIC METABOLIC PANEL,BMP [CHEM] AM Lab 06/03/17 05:11 Ordered CBC WITH AUTO DIFF [HEME] AM Lab 06/01/17 05:11 Ordered CBC WITH AUTO DIFF [HEME] AM Lab 06/02/17 05:11 Ordered CBC WITH AUTO DIFF [HEME] AM Lab 06/03/17 05:11 Ordered CBC WITH AUTO DIFF [HEME] Routine Lab 05/31/17 17:45 Ordered CDIFF TOX A+B [OP] Routine Lab 05/31/17 17:45 Uncollected COMPREHENSIVE METABOLIC PN,CMP [CHEM] Routine Lab 05/31/17 17:45 Ordered CULTURE BLOOD [BC] Stat Lab 05/31/17 17:45 Ordered CULTURE SPUTUM + SMEAR [RM] Stat Lab 05/31/17 17:45 Uncollected CULTURE STOOL + CAMPY+SHIGATOX [RM] Routine Lab 05/31/17 17:45 Uncollected CULTURE URINE [RM] Stat Lab 05/31/17 17:45 Uncollected LACTIC ACID,WHOLE BLOOD [BG] Routine Lab 05/31/17 17:45 Ordered MAGNESIUM [CHEM] Routine Lab 05/31/17 17:45 Ordered PHOSPHORUS [CHEM] Routine Lab 05/31/17 17:45 Ordered UA W/MICROSCOPIC [URIN] Routine Lab 05/31/17 17:45 Uncollected WBC, STOOL [OP] Routine Lab 05/31/17 17:45 Uncollected Acetaminophen [Tylenol] Med 05/31/17 17:45 Ordered 650 mg PO Q4H PRN Albuterol [Proventil Neb Soln] Med 05/31/17 17:45 Ordered 2.5 mg NEB Q2H PRN Aspirin Med 06/01/17 09:00 Ordered 81 mg PO DAILY Levofloxacin/Dextrose 5%-Water [Levaquin in D5W 750 MG/ Med 05/31/17 17:45 Ordered 150 ML] 750 mg Premix Bag 1 bag IV Q24H Levothyroxine Med 06/01/17 09:00 Ordered 75 mcg PO DAILY Nicotine [Habitrol] Med 05/31/17 17:45 Ordered 21 mg TRDERM DAILY Ondansetron [Zofran ODT] Med 05/31/17 17:45 Ordered 4 mg PO Q4H PRN Sodium Chloride 0.9% @ 125 MLS/HR (1000ml) Med 05/31/17 17:45 Ordered Sodium Chloride 0.9% [Normal Saline] 1,000 ml IV ASDIRECTED Sequential Compression Device [OM.PC] Per Unit Routine Oth 05/31/17 17:47 Ordered Resuscitation Status Routine Resus Stat 05/31/17 17:45 Ordered Medication Orders Acetaminophen (Tylenol) 650 mg PO Q4H PRN PRN Reason: Pain (Mild 1-3)/fever Albuterol (Proventil Neb Soln) 2.5 mg NEB Q2H PRN PRN Reason: Shortness Of Breath/wheezing Aspirin (Aspirin) 81 mg PO DAILY [facility] Levofloxacin/Dextrose 750 mg/ (Premix) 150 mls @ 100 mls/hr IV Q24H [facility] Sodium Chloride (Normal Saline) 1,000 mls @ 125 mls/hr IV ASDIRECTED [facility] Levothyroxine Sodium (Levothyroxine) 75 mcg PO DAILY [facility] Nicotine (Habitrol) 21 mg TRDERM DAILY [facility] Ondansetron HCl (Zofran Odt) 4 mg PO Q4H PRN PRN Reason: nausea, able to take PO Assessment/Plan Comment:: 72-year-old female admitted with community-acquired pneumonia. #1. Community-acquired pneumonia: -No documentation was sent from the clinic in [place]. A full workup will be done on the patient including chest x-ray, EKG, CBC, CMP, lactate, blood cultures 2, urinalysis with urine cultures, sputum cultures. These are all pending. Medical care will be dependent on these results. -Ceftriaxone and azithromycin will be discontinued as the patient has not improved on this. She will be started on IV Levaquin daily. -As patient does have a significant history of tobacco use, we can consider treating her with Solu-Medrol for COPD exacerbation if she does not improve on IV Levaquin. -Duo nebs treatments are available as needed. #2. Diarrhea: -Stool cultures are pending. -Magnesium and phosphorus levels are pending. -Patient may require Imodium. -Patient will be maintained on normal saline at 125 mL/hour. Home medications have been restarted including daily aspirin. DVT prophylaxis: SCDs, home dose of aspirin. Discharge: 2-4 days pending improvement.
[2017-05-31] MEDS: Acetaminophen 325 MG Tab PO PRN ×3 (18:15→23:53)
[2017-05-31] MEDS: Nicotine 21 MG/24 Hr Patch TRDERM SCH (18:15)
[2017-05-31] MEDS ORDERED: Ibuprofen 200 MG Tab PO PRN (20:41)
[2017-06-01] MEDS: Sodium Chloride 0.9% 1,000 ML IV SCH (03:39)
[2017-06-01] MEDS: Aspirin 81 MG Tab.Chew PO SCH (08:13)
[2017-06-01] MEDS: Nicotine 21 MG/24 Hr Patch TRDERM SCH (08:13)
[2017-06-01] MEDS ORDERED: Levothyroxine 25 MCG Tab PO SCH (09:00)
--- NOTE | 2017-06-01 09:39 | CR ---
EXAM DATE: 05/31/17 PATIENT'S AGE: 72 Patient: BERNARD MARTÍNEZ Facility: [place], [place] Site . Site : 1945 Study: XRay Chest [id number]/24/2017 6:55:18 PM Ordering Physician: Isaura Thomas Final Report: INDICATIONS: Shortness of breath. Pneumonia. TECHNIQUE: Chest 2 view. COMPARISON: Chest radiograph December 29, 2016. FINDINGS: No pneumothorax or pleural effusion. Bibasilar scarring and atelectasis. Emphysema. Question new patchy opacity at the right costophrenic angle. Aortic atherosclerosis. Cardiac and mediastinal contours are otherwise within normal limits. Upper abdomen and osseous structures show no acute abnormality. IMPRESSION: Possible new mild opacity of the right costophrenic angle. Correlation for developing pneumonia in this region recommended. Otherwise stable chest radiograph. Dictated by Roverto Bateman MD @ 05/31/2017 7:02:35 PM Dictated by: Roverto Bateman MD @ 05/31/2017 19:02:49 (Electronic Signature) Report Signed by Proxy. [facility]
--- NOTE | 2017-06-01 10:33 | PCM.PN ---
- General Info Date of Service: 06/01/17 Admission Dx/Problem (Free Text): Admission Diagnosis/Problem Admission Diagnosis/Problem Pneumonia Subjective Update: Not feeling well this morning. Coughing some, non productive. No chest pain. But feels general malaise. No subjective fevers Functional Status: Reports: Pain Controlled, Tolerating Diet, Ambulating, Urinating - Review of Systems General: Reports: Malaise. Denies: Fever, Appetite (poor) HEENT: Reports: No Symptoms. Denies: Headaches Pulmonary: Reports: Cough. Denies: Shortness of Breath, Sputum, Hemoptysis, Wheezing Cardiovascular: Reports: No Symptoms. Denies: Chest Pain, Palpitations, Edema Gastrointestinal: Reports: No Symptoms. Denies: Abdominal Pain, Nausea, Vomiting Genitourinary: Reports: No Symptoms. Denies: Dysuria, Frequency Musculoskeletal: Reports: No Symptoms Skin: Reports: No Symptoms Neurological: Reports: No Symptoms Psychiatric: Reports: No Symptoms - Patient Data Vitals - Most Recent: Last Vital Signs Temp 98.4 F 06/01/17 08:00 Pulse 78 06/01/17 08:00 Resp 16 06/01/17 08:00 BP 125/60 06/01/17 08:00 Pulse Ox 98 06/01/17 08:00 Weight - Most Recent: 55.2 kg I&O - Last 24 Hours: Intake & Output 05/31/17 06/01/17 06/01/17 22:59 06:59 14:59 Intake Total 1320 Output Total 1600 Balance -280 Lab Results Last 24 Hours: Laboratory Results - last 24 hr 05/31/17 05/31/17 05/31/17 Range/Units 18:26 18:26 18:26 WBC 15.01 H (4.0-11.0) K/uL RBC 3.11 L (4.30-5.90) M/uL Hgb 9.8 L (12.0-16.0) g/dL Hct 29.0 L (36.0-46.0) % MCV 93.2 (80.0-98.0) fL MCH 31.5 (27.0-32.0) pg MCHC 33.8 (31.0-37.0) g/dL RDW Std Deviation 48.1 (28.0-62.0) fl RDW Coeff of Nadine 14 (11.0-15.0) % Plt Count 219 (150-400) K/uL MPV 9.20 (7.40-12.00) fL Add Manual Diff YES Neutrophils % (Manual) 66 (48.0-80.0) % Band Neutrophils % 2 % Lymphocytes % (Manual) 19 (16.0-40.0) % Monocytes % (Manual) 8 (0.0-15.0) % Eosinophils % (Manual) 5 (0.0-7.0) % Nucleated RBC % 0.0 /100WBC Absolute Seg Neuts 9.9 Band Neutrophils # 0.3 Lymphocytes # (Manual) 2.9 Monocytes # (Manual) 1.2 Eosinophils # (Manual) 0.8 Nucleated RBCs # 0 K/uL Lactate 0.6 (0.20-2.00) mmol/L Sodium 134 L (136-146) mmol/L Potassium 3.8 (3.5-5.1) mmol/L Chloride 105 (98-110) mmol/L Carbon Dioxide 21 (21-31) mmol/L BUN 21 (6.0-23.0) mg/dL Creatinine 1.2 (0.6-1.5) mg/dL Est Cr Clr Drug Dosing 35.05 mL/min Estimated GFR (MDRD) 43.9 ml/min Glucose 95 (60-110) mg/dL Calcium 8.3 L (8.8-10.8) mg/dL Phosphorus 2.9 (2.4-4.7) mg/dL Magnesium 1.5 (1.5-2.3) mEq/L Total Bilirubin 0.4 (0.1-1.5) mg/dL AST 13 (5-40) IU/L ALT 12 (8-54) IU/L Alkaline Phosphatase 59 (40-150) Total Protein 6.1 (6.0-8.0) g/dL Albumin 2.8 L (3.4-4.8) g/dL Globulin 3.3 (2.0-3.5) g/dL Albumin/Globulin Ratio 0.9 L (1.3-2.8) Urine Color Urine Appearance Urine pH (5.0-8.0) Ur Specific Macy (1.001-1.035) Urine Protein (NEGATIVE) mg/dL Urine Glucose (UA) (NEGATIVE) mg/dL Urine Ketones (NEGATIVE) mg/dL Urine Occult Blood (NEGATIVE) Urine Nitrite (NEGATIVE) Urine Bilirubin (NEGATIVE) Urine Urobilinogen (<2.0) EU/dL Ur Leukocyte Esterase (NEGATIVE) Urine RBC (0-2/HPF) Urine WBC (0-5/HPF) Ur Epithelial Cells (NONE-FEW) Urine Bacteria (NEGATIVE) 05/31/17 06/01/17 06/01/17 Range/Units 21:45 04:45 04:45 WBC 12.00 H (4.0-11.0) K/uL RBC 3.19 L (4.30-5.90) M/uL Hgb 9.8 L (12.0-16.0) g/dL Hct 29.8 L (36.0-46.0) % MCV 93.4 (80.0-98.0) fL MCH 30.7 (27.0-32.0) pg MCHC 32.9 (31.0-37.0) g/dL RDW Std Deviation 48.3 (28.0-62.0) fl RDW Coeff of Nadine 14 (11.0-15.0) % Plt Count 233 (150-400) K/uL MPV 9.40 (7.40-12.00) fL Add Manual Diff YES Neutrophils % (Manual) 81 H (48.0-80.0) % Band Neutrophils % 3 % Lymphocytes % (Manual) 9 L (16.0-40.0) % Monocytes % (Manual) 6 (0.0-15.0) % Eosinophils % (Manual) 1 (0.0-7.0) % Nucleated RBC % 0.0 /100WBC Absolute Seg Neuts 9.7 Band Neutrophils # 0.4 Lymphocytes # (Manual) 1.1 Monocytes # (Manual) 0.7 Eosinophils # (Manual) 0.1 Nucleated RBCs # 0 K/uL Lactate (0.20-2.00) mmol/L Sodium 140 (136-146) mmol/L Potassium 4.2 (3.5-5.1) mmol/L Chloride 113 H (98-110) mmol/L Carbon Dioxide 20 L (21-31) mmol/L BUN 18 (6.0-23.0) mg/dL Creatinine 1.1 (0.6-1.5) mg/dL Est Cr Clr Drug Dosing 39.03 mL/min Estimated GFR (MDRD) 48.6 ml/min Glucose 99 (60-110) mg/dL Calcium 8.0 L (8.8-10.8) mg/dL Phosphorus (2.4-4.7) mg/dL Magnesium (1.5-2.3) mEq/L Total Bilirubin (0.1-1.5) mg/dL AST (5-40) IU/L ALT (8-54) IU/L Alkaline Phosphatase (40-150) Total Protein (6.0-8.0) g/dL Albumin (3.4-4.8) g/dL Globulin (2.0-3.5) g/dL Albumin/Globulin Ratio (1.3-2.8) Urine Color YELLOW Urine Appearance CLEAR Urine pH 6.0 (5.0-8.0) Ur Specific Macy <= 1.005 (1.001-1.035) Urine Protein NEGATIVE (NEGATIVE) mg/dL Urine Glucose (UA) NEGATIVE (NEGATIVE) mg/dL Urine Ketones NEGATIVE (NEGATIVE) mg/dL Urine Occult Blood SMALL H (NEGATIVE) Urine Nitrite NEGATIVE (NEGATIVE) Urine Bilirubin NEGATIVE (NEGATIVE) Urine Urobilinogen 0.2 (<2.0) EU/dL Ur Leukocyte Esterase NEGATIVE (NEGATIVE) Urine RBC 0-1 (0-2/HPF) Urine WBC 0-3 (0-5/HPF) Ur Epithelial Cells OCCASIONAL (NONE-FEW) Urine Bacteria FEW (NEGATIVE) Med Orders - Current: Current Medications Acetaminophen (Tylenol) 650 mg PO Q4H PRN PRN Reason: Pain (Mild 1-3)/fever Last Admin: 05/31/17 23:53 Dose: 325 mg Albuterol (Proventil Neb Soln) 2.5 mg NEB Q2H PRN PRN Reason: Shortness Of Breath/wheezing Aspirin (Aspirin) 81 mg PO DAILY [facility] Last Admin: 06/01/17 08:13 Dose: 81 mg Levofloxacin/Dextrose 750 mg/ (Premix) 150 mls @ 100 mls/hr IV Q48H [facility] Ibuprofen (Motrin) 200 mg PO Q6H PRN PRN Reason: Pain Levothyroxine Sodium (Levothyroxine) 75 mcg PO ACBREAKFAST [facility] Nicotine (Habitrol) 21 mg TRDERM DAILY [facility] Last Admin: 06/01/17 08:13 Dose: 21 mg Ondansetron HCl (Zofran Odt) 4 mg PO Q4H PRN PRN Reason: nausea, able to take PO Discontinued Medications Levofloxacin/Dextrose 750 mg/ (Premix) 150 mls @ 100 mls/hr IV Q24H [facility] Last Admin: 05/31/17 18:14 Dose: 100 mls/hr Sodium Chloride (Normal Saline) 1,000 mls @ 125 mls/hr IV ASDIRECTED [facility] Last Admin: 06/01/17 03:39 Dose: 125 mls/hr Levothyroxine Sodium (Levothyroxine) 75 mcg PO DAILY [facility] Last Admin: 06/01/17 08:15 Dose: 75 mcg - Exam General: Alert, Oriented, Cooperative, No Acute Distress Neck: Supple, No JVD. No: Lymphadenopathy Lungs: Crackles (R base) Cardiovascular: Regular Rate, Regular Rhythm, No Murmurs GI/Abdominal Exam: Normal Bowel Sounds, Soft, Non-Tender, No Organomegaly, No Distention, No Abnormal Bruit, No Mass, Pelvis Stable Extremities: Normal Inspection, Normal Range of Motion, Non-Tender, No Pedal Edema, Normal Capillary Refill Neurological: No New Focal Deficit Psy/Mental Status: Alert, Normal Affect, Normal Mood - Problem List & Annotations (1) Community acquired pneumonia SNOMED Code(s): 278518929 Code(s): J18.9 - PNEUMONIA, UNSPECIFIED ORGANISM Status: Acute Current Visit: Yes (2) Hypothyroidism SNOMED Code(s): 18829695 Code(s): E03.9 - HYPOTHYROIDISM, UNSPECIFIED Status: Chronic Current Visit: Yes Qualifiers: Hypothyroidism type: unspecified Qualified Code(s): E03.9 - Hypothyroidism , unspecified (3) COPD (chronic obstructive pulmonary disease) SNOMED Code(s): 22082094 Code(s): J44.9 - CHRONIC OBSTRUCTIVE PULMONARY DISEASE, UNSPECIFIED Status : Chronic Current Visit: No Qualifiers: COPD type: chronic bronchitis Chronic bronchitis type: simple Qualified Code(s): J41.0 - Simple chronic bronchitis - Problem List Review Problem List Initiated/Reviewed/Updated: Yes - Plan Plan:: 72-year-old female admitted with community-acquired pneumonia. 1. Community-acquired pneumonia: Failed outpatient treatment. Continue Levaquin IV today. Continue supportive care with Oxygen PRN, Duonebs. No wheezing at this time, will not add steroid. 2. Diarrhea: Has not had any since admission. Will stop IVFs, eating and 3. COPD: Stable. no exacerbation at this time. 4. Hypothyroidism: Continue Levothyroxine. VTE prophylaxis: Lovenox. Discharge: 2-4 days pending improvement.
[2017-06-01] MEDS: Enoxaparin 40 MG/0.4 ML Syringe SUBCUT SCH (13:00)
[2017-06-02] MEDS: Levothyroxine 50 MCG Tab PO SCH (06:49)
--- NOTE | 2017-06-02 08:42 | PCM.PN ---
- Review of Systems Systems Review Comment:: feeling better, but not quite ready to go home. - Patient Data Vitals - Most Recent: Last Vital Signs Temp 36.7 C 06/02/17 08:00 Pulse 76 06/02/17 08:00 Resp 22 H 06/02/17 08:00 BP 118/56 L 06/02/17 08:00 Pulse Ox 98 06/02/17 08:00 Weight - Most Recent: 57 kg I&O - Last 24 Hours: Intake & Output 06/01/17 06/02/17 06/02/17 22:59 06:59 14:59 Intake Total 750 550 Output Total 2300 1250 Balance -1550 -700 Lab Results Last 24 Hours: Laboratory Results - last 24 hr 06/02/17 06/02/17 Range/Units 05:32 05:32 WBC 10.04 (4.0-11.0) K/uL RBC 3.30 L (4.30-5.90) M/uL Hgb 10.3 L (12.0-16.0) g/dL Hct 30.8 L (36.0-46.0) % MCV 93.3 (80.0-98.0) fL MCH 31.2 (27.0-32.0) pg MCHC 33.4 (31.0-37.0) g/dL RDW Std Deviation 47.9 (28.0-62.0) fl RDW Coeff of Nadine 14 (11.0-15.0) % Plt Count 248 (150-400) K/uL MPV 9.10 (7.40-12.00) fL Add Manual Diff YES Neutrophils % (Manual) 73 (48.0-80.0) % Band Neutrophils % 3 % Lymphocytes % (Manual) 16 (16.0-40.0) % Monocytes % (Manual) 5 (0.0-15.0) % Eosinophils % (Manual) 1 (0.0-7.0) % Basophils % (Manual) 2 H (0.0-1.5) % Nucleated RBC % 0.0 /100WBC Absolute Seg Neuts 7.3 Band Neutrophils # 0.3 Lymphocytes # (Manual) 1.6 Monocytes # (Manual) 0.5 Eosinophils # (Manual) 0.1 Basophils # (Manual) 0 Nucleated RBCs # 0 K/uL Sodium 137 (136-146) mmol/L Potassium 4.0 (3.5-5.1) mmol/L Chloride 109 (98-110) mmol/L Carbon Dioxide 22 (21-31) mmol/L BUN 13 (6.0-23.0) mg/dL Creatinine 1.0 (0.6-1.5) mg/dL Est Cr Clr Drug Dosing 42.93 mL/min Estimated GFR (MDRD) 54.2 ml/min Glucose 92 (60-110) mg/dL Calcium 8.4 L (8.8-10.8) mg/dL Jean-Claude Results Last 24 Hours: Microbiology 05/31/17 21:45 Urine Culture - Final Urine, Clean Catch No Growth 05/31/17 18:23 Aerobic Blood Culture - Preliminary Blood NO GROWTH AFTER 1 DAY Anaerobic Blood Culture - Preliminary NO GROWTH AFTER 1 DAY 05/31/17 18:11 Aerobic Blood Culture - Preliminary Blood NO GROWTH AFTER 1 DAY Anaerobic Blood Culture - Preliminary NO GROWTH AFTER 1 DAY 06/01/17 11:10 Influenza Type A Antigen Screen - Final Nasopharyngeal Swab - Nare, Right NEGATIVE INFLUENZA A VIRUS AG Influenza Type B Antigen Screen - Final NEGATIVE INFLUENZA B VIRUS AG Med Orders - Current: Current Medications Acetaminophen (Tylenol) 650 mg PO Q4H PRN PRN Reason: Pain (Mild 1-3)/fever Last Admin: 05/31/17 23:53 Dose: 325 mg Albuterol (Proventil Neb Soln) 2.5 mg NEB Q2H PRN PRN Reason: Shortness Of Breath/wheezing Aspirin (Aspirin) 81 mg PO DAILY [facility] Last Admin: 06/01/17 08:13 Dose: 81 mg Enoxaparin Sodium (Lovenox) 40 mg SUBCUT Q24H [facility] Last Admin: 06/01/17 13:00 Dose: 40 mg Levofloxacin/Dextrose 750 mg/ (Premix) 150 mls @ 100 mls/hr IV Q48H [facility] Ibuprofen (Motrin) 200 mg PO Q6H PRN PRN Reason: Pain Levothyroxine Sodium (Synthroid) 50 mcg PO ACBREAKFAST [facility] Last Admin: 06/02/17 06:49 Dose: 50 mcg Nicotine (Habitrol) 21 mg TRDERM DAILY [facility] Last Admin: 06/01/17 08:13 Dose: 21 mg Ondansetron HCl (Zofran Odt) 4 mg PO Q4H PRN PRN Reason: nausea, able to take PO Discontinued Medications Levofloxacin/Dextrose 750 mg/ (Premix) 150 mls @ 100 mls/hr IV Q24H [facility] Last Admin: 05/31/17 18:14 Dose: 100 mls/hr Sodium Chloride (Normal Saline) 1,000 mls @ 125 mls/hr IV ASDIRECTED [facility] Last Admin: 06/01/17 03:39 Dose: 125 mls/hr Levothyroxine Sodium (Levothyroxine) 75 mcg PO DAILY [facility] Last Admin: 06/01/17 08:15 Dose: 75 mcg - Exam General: Alert, Oriented Lungs: Clear to Auscultation, Normal Respiratory Effort Cardiovascular: Regular Rate, Regular Rhythm GI/Abdominal Exam: Soft, Non-Tender Extremities: Non-Tender, No Pedal Edema - Problem List Review Problem List Initiated/Reviewed/Updated: Yes - Plan Plan:: 72-year-old female admitted with community-acquired pneumonia. Community-acquired pneumonia: Failed outpatient treatment. Continue levaquin. Hypothyroidism: Continue Levothyroxine. VTE prophylaxis: Lovenox. Discharge: anticipate discharge tomorrow.
[2017-06-02] MEDS: Aspirin 81 MG Tab.Chew PO SCH (09:53)
[2017-06-02] MEDS: Nicotine 21 MG/24 Hr Patch TRDERM SCH (09:54)
[2017-06-02] MEDS: Enoxaparin 40 MG/0.4 ML Syringe SUBCUT SCH (12:40)
[2017-06-02] MEDS ORDERED: Levofloxacin/Dextrose 5%-Water 750 MG in Premix Bag 1 BAG IV SCH (18:00)
[2017-06-03] MEDS: Levothyroxine 50 MCG Tab PO SCH (06:42)
[2017-06-03 07:39] VITALS: BP 114/56
--- NOTE | 2017-06-03 08:01 | PCM.DCSUM1 ---
Discharge Summary - Discharge Data Discharge Date: 06/03/17 Discharge Disposition: Home, Self-Care 01 Condition: Good - Patient Summary/Data Consults: Consultations 05/31/17 17:45 PT Evaluation and Treatment [CONS] Routine Hospital Course: Admission diagnosis Community acquired pneumonia Hospital Course: 72 yo female who was directly admitted from [facility] for failed outpatient management of pneumonia. She had been treating with azithromycin. She continued to have worsening symptoms of malaise, and cough. WBC was 15,000 and Chest x-ray reported right basilar infiltrate. She was treated with Levaquin with improvement in symptoms. She is being discharged today on oral Levaquin and is to follow up with [facility] in [place]. - Patient Instructions Diet: Usual Diet as Tolerated Activity: As Tolerated - Discharge Plan Prescriptions/Med Rec: Levofloxacin [Levaquin] 750 mg PO Q48H #3 tab Home Medications: Home Meds Aspirin 81 mg PO DAILY 11/02/15 [History] Levothyroxine Sodium [Levo-T] 50 mcg PO ACBREAKFAST 06/01/17 [History] Levofloxacin [Levaquin] 750 mg PO Q48H #3 tab 06/03/17 [Rx] Referrals: [facility] [Outside] Mary Seymour PA [ED Midlevel Provider] - 06/07/17 1:00 pm - Patient Data Vitals - Most Recent: Last Vital Signs Temp 36.0 C 06/03/17 07:38 Pulse 62 06/03/17 07:38 Resp 22 H 06/03/17 07:38 BP 114/56 L 06/03/17 07:38 Pulse Ox 97 06/03/17 07:38 Weight - Most Recent: 56.5 kg I&O - Last 24 hours: Intake & Output 06/02/17 06/03/17 06/03/17 22:59 06:59 14:59 Intake Total 850 400 Output Total 1100 1500 Balance -250 -1100 Lab Results - Last 24 hrs: Laboratory Results - last 24 hr 06/03/17 06/03/17 Range/Units 05:10 05:10 WBC 8.77 (4.0-11.0) K/uL RBC 3.12 L (4.30-5.90) M/uL Hgb 9.8 L (12.0-16.0) g/dL Hct 29.2 L (36.0-46.0) % MCV 93.6 (80.0-98.0) fL MCH 31.4 (27.0-32.0) pg MCHC 33.6 (31.0-37.0) g/dL RDW Std Deviation 48.5 (28.0-62.0) fl RDW Coeff of Nadine 14 (11.0-15.0) % Plt Count 266 (150-400) K/uL MPV 9.10 (7.40-12.00) fL Neut % (Auto) 72.0 (48.0-80.0) % Lymph % (Auto) 14.0 L (16.0-40.0) % Ida % (Auto) 11.1 (0.0-15.0) % Eos % (Auto) 2.7 (0.0-7.0) % Baso % (Auto) 0.2 (0.0-1.5) % Neut # (Auto) 6.3 H (1.4-5.7) K/uL Lymph # (Auto) 1.2 (0.6-2.4) K/uL Ida # (Auto) 1.0 H (0.0-0.8) K/uL Eos # (Auto) 0.2 (0.0-0.7) K/uL Baso # (Auto) 0.0 (0.0-0.1) K/uL Nucleated RBC % 0.0 /100WBC Nucleated RBCs # 0 K/uL Sodium 136 (136-146) mmol/L Potassium 4.0 (3.5-5.1) mmol/L Chloride 108 (98-110) mmol/L Carbon Dioxide 21 (21-31) mmol/L BUN 12 (6.0-23.0) mg/dL Creatinine 1.1 (0.6-1.5) mg/dL Est Cr Clr Drug Dosing 39.03 mL/min Estimated GFR (MDRD) 48.6 ml/min Glucose 88 (60-110) mg/dL Calcium 8.3 L (8.8-10.8) mg/dL MARY Results - Last 24 hrs: Microbiology 05/31/17 18:23 Aerobic Blood Culture - Preliminary Blood NO GROWTH AFTER 2 DAYS Anaerobic Blood Culture - Preliminary NO GROWTH AFTER 2 DAYS 05/31/17 18:11 Aerobic Blood Culture - Preliminary Blood NO GROWTH AFTER 2 DAYS Anaerobic Blood Culture - Preliminary NO GROWTH AFTER 2 DAYS 05/31/17 21:45 Urine Culture - Final Urine, Clean Catch No Growth Med Orders - Current: Current Medications Acetaminophen (Tylenol) 650 mg PO Q4H PRN PRN Reason: Pain (Mild 1-3)/fever Last Admin: 05/31/17 23:53 Dose: 325 mg Albuterol (Proventil Neb Soln) 2.5 mg NEB Q2H PRN PRN Reason: Shortness Of Breath/wheezing Aspirin (Aspirin) 81 mg PO DAILY [facility] Last Admin: 06/02/17 09:53 Dose: 81 mg Enoxaparin Sodium (Lovenox) 40 mg SUBCUT Q24H [facility] Last Admin: 06/02/17 12:40 Dose: 40 mg Levofloxacin/Dextrose 750 mg/ (Premix) 150 mls @ 100 mls/hr IV Q48H [facility] Last Admin: 06/02/17 17:36 Dose: 100 mls/hr Ibuprofen (Motrin) 200 mg PO Q6H PRN PRN Reason: Pain Levothyroxine Sodium (Synthroid) 50 mcg PO ACBREAKFAST [facility] Last Admin: 06/03/17 06:42 Dose: 50 mcg Nicotine (Habitrol) 21 mg TRDERM DAILY [facility] Last Admin: 06/02/17 09:54 Dose: 21 mg Ondansetron HCl (Zofran Odt) 4 mg PO Q4H PRN PRN Reason: nausea, able to take PO Discontinued Medications Levofloxacin/Dextrose 750 mg/ (Premix) 150 mls @ 100 mls/hr IV Q24H [facility] Last Admin: 05/31/17 18:14 Dose: 100 mls/hr Sodium Chloride (Normal Saline) 1,000 mls @ 125 mls/hr IV ASDIRECTED [facility] Last Admin: 06/01/17 03:39 Dose: 125 mls/hr Levothyroxine Sodium (Levothyroxine) 75 mcg PO DAILY [facility] Last Admin: 06/01/17 08:15 Dose: 75 mcg *Q Meaningful Use (DIS) - VTE *Q VTE Criteria *Q: - Stroke *Q Stroke Criteria *Q: - AMI *Q AMI Criteria *Q:
[2017-06-03] MEDS: Nicotine 21 MG/24 Hr Patch TRDERM SCH (08:39)
[2017-06-03] MEDS: Aspirin 81 MG Tab.Chew PO SCH (08:39)
== END 2017-06-03 09:25 | disposition home or self-care (01) | DRG 195 ==
LOC: MW.MS 17:15
PROVIDERS: ADMIT Internal Medicine; ATTEND Internal Medicine
DX: J18.9 Pneumonia, unspecified organism (principal); R19.7 Diarrhea, unspecified; E03.9 Hypothyroidism, unspecified; J44.9 Chronic obstructive pulmonary disease, unspecified; F17.210 Nicotine dependence, cigarettes, uncomplicated; Z88.0 Allergy status to penicillin; Z91.041 Radiographic dye allergy status; Z88.1 Allergy status to other antibiotic agents; Z79.899 Other long term (current) drug therapy
CPT/HCPCS: 36415; 71020; 71020-26; 80048; 80053; 81001; 83605; 83735; 84100; 85025; 87040; 87086; 87804; 97161-GP; 97530-GP; A9270-GY; J1650; J1956; J7040

== ENCOUNTER 2017-09-05 09:51 | Observation (INO) | payer MEDICARE, OTHER ==
[2017-09-05] MEDS ORDERED: Sodium Chloride 0.9% 2.5 ML Syringe FLUSH PRN ×2 (10:02→14:45)
[2017-09-05] MEDS ORDERED: Sodium Chloride 0.9% 10 ML Syringe FLUSH PRN ×2 (10:02→14:45)
[2017-09-05] MEDS ORDERED: Ondansetron 4 MG/2 ML SDV IVPUSH ONE (10:16)
[2017-09-05] MEDS ORDERED: Morphine 2 MG/ML Syringe IVPUSH ONE (10:16)
[2017-09-05 10:56] LABS: CHLORIDE,CL 110 mmol/L (98-110); SODIUM,NA 141 mmol/L (136-146)
--- NOTE | 2017-09-05 10:59 | CT ---
EXAMINATION: Non contrast CT head. Coronal and sagittal reformats. HISTORY: Headache FINDINGS: No evidence of intra or extra axial hemorrhage, mass, midline shift, hydrocephalus or edema. Periven tricular and subcortical white matter hypodensities are noted. No hypoattenuation changes in the major vascular territories to suggest acute infarct. No abnormal intracranial calcifications are detected. No evidence of substantial vascular calcificat ions. Paranasal sinuses and mastoid air cells are well aerated without substantial findings. Pituitary fossa appears unremarkable. Old nasal bone fractures noted. There is a partially visualized 1.4 x 1.6 cm left parotid nodule. Calvarium is intact. No evidence of skull fracture. IMPRESSION: 1. No acute intracranial findings. 2. Mild small vessel ischemic changes. 2. Indeterminate partially visualized 1.4 x 1.6 cm left parotid nodule.
[2017-09-05] MEDS ORDERED: Meclizine 25 MG Tab PO ONE (11:15)
[2017-09-05] MEDS ORDERED: Metoclopramide 10 MG/2 ML SDV IV ONE (11:15)
--- NOTE | 2017-09-05 11:44 | EDM.PDOC ---
ED HPI GENERAL MEDICAL PROBLEM - General Chief Complaint: Headache Stated Complaint: SOB,NAUSEA Time Seen by Provider: 09/05/17 10:01 Source of Information: Reports: Patient History Limitations: Reports: No Limitations - History of Present Illness INITIAL COMMENTS - FREE TEXT/NARRATIVE: History of present illness: []Patient called an ambulance after feeling very dizzy and nauseated this morning that worsens with movement of her head. She does have a history of vertigo and states it feels the same. In the ambulance however she developed a severe headache which is not typical during her episodes of vertigo. She denies any head trauma, fevers, chills, visual changes, speech difficulty or numbness or tingling. Review of systems: As per history of present illness and below otherwise all systems reviewed and negative. Past medical history: As per history of present illness and as reviewed below otherwise noncontributory. Surgical history: As per history of present illness and as reviewed below otherwise noncontributory. Social history: No reported history of drug or alcohol abuse. Family history: As per history of present illness and as reviewed below otherwise noncontributory. Physical exam: General: Well developed, well nourished in NAD HEENT: Atraumatic, normocephalic, pupils reactive, negative for conjunctival pallor or scleral icterus, mucous membranes moist, throat clear, neck supple, nontender, trachea midline. Lungs: Clear to auscultation, breath sounds equal bilaterally, chest nontender. Heart: S1S2, regular, negative for clicks, rubs, or JVD. Abdomen: Soft, nondistended, nontender. Negative for masses or hepatosplenomegaly. Negative for costovertebral tenderness. Pelvis: Stable nontender. Genitourinary: Deferred. Rectal: Deferred. Extremities: Atraumatic, negative for cords or calf pain. Neurovascular unremarkable. Neuro: Awake, alert, oriented. Cranial nerves II through XII unremarkable. Cerebellum unremarkable. Motor and sensory unremarkable throughout. Exam nonfocal. Diagnostics: []CT head negative labs negative Therapeutics: []IV hydrated, morphine and meclizine given in the ED Impression: []Benign positional vertigo Plan: []Admit for observation as patient failed ambulation in the ED due to weakness and dizziness after treatment Definitive disposition and diagnosis as appropriate pending reevaluation and review of above. headache Pain Score (Numeric/FACES): 7 - Related Data Allergies Allergy/AdvReac Type Severity Reaction Status Date / Time amoxicillin Allergy Hives Verified 09/05/17 10:04 Penicillins Allergy Hives Verified 09/05/17 10:04 Sulfa (Sulfonamide Allergy Hives Verified 09/05/17 10:04 Antibiotics) IV contrast Allergy Hives Uncoded 09/05/17 10:04 Home Meds: Home Meds Aspirin 81 mg PO DAILY 11/02/15 [History] Levothyroxine Sodium [Levo-T] 50 mcg PO ACBREAKFAST 06/01/17 [History] Levofloxacin [Levaquin] 750 mg PO Q48H #3 tab 06/03/17 [Rx] Past Medical History HEENT History: Reports: Impaired Vision Cardiovascular History: Reports: Other (See Below) Other Cardiovascular History: Transferred to [place] for chest pain last year Respiratory History: Reports: Bronchitis, Recurrent, COPD 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: Musculoskeletal History: Reports: Arthritis Other Musculoskeletal History: in back Endocrine/Metabolic History: Reports: Hypothyroidism Oncologic (Cancer) History: Reports: None - Infectious Disease History Infectious Disease History: Reports: Shingles - Past Surgical History HEENT Surgical History: Reports: None Cardiovascular Surgical History: Reports: None Respiratory Surgical History: Reports: None Endocrine Surgical History: Reports: Thyroidectomy Social & Family History - Family History Family Medical History: Unobtainable Cardiac: Reports: [place] OBGYN: Reports: Musculoskeletal: Reports: Arthritis Neurological: Reports: Alzheimers Disease Oncologic: Reports: Colon, Prostate - Tobacco Use Smoking Status *Q: Former Smoker Years of Tobacco use: 50 Packs/Tins Daily: 1 Used Tobacco, but Quit: Yes Month Tobacco Last Used: 05/2017 Second Hand Smoke Exposure: No - Caffeine Use Caffeine Use: Reports: None - Recreational Drug Use Recreational Drug Use: No Drug Use in Last 12 Months: No ED ROS GENERAL - Review of Systems Review Of Systems: See Below (See history of present illness) ED EXAM, GENERAL - Physical Exam Exam: See Below (See history of present illness) Course - Vital Signs Last Recorded V/S: Last Vital Signs Temp 97.7 F 09/05/17 10:05 Pulse 58 L 09/05/17 12:25 Resp 16 09/05/17 11:40 BP 135/74 09/05/17 12:25 Pulse Ox 100 09/05/17 11:40 - Orders/Labs/Meds Orders: Active Orders 24 hr Category Date Time Status Patient Status [ADT] Stat ADT 09/05/17 13:12 Ordered EKG Documentation Completion [RC] STAT Care 09/05/17 10:02 Active Sodium Chloride 0.9% [Saline Flush] Med 09/05/17 10:02 Active 10 ml FLUSH ASDIRECTED PRN Sodium Chloride 0.9% [Saline Flush] Med 09/05/17 10:02 Active 2.5 ml FLUSH ASDIRECTED PRN Saline Lock Insert [OM.PC] Stat Oth 09/05/17 10:02 Ordered Medication Orders Sodium Chloride (Saline Flush) 10 ml FLUSH ASDIRECTED PRN PRN Reason: Keep Vein Open Last Admin: 09/05/17 10:26 Dose: 10 ml Sodium Chloride (Saline Flush) 2.5 ml FLUSH ASDIRECTED PRN PRN Reason: Keep Vein Open Last Admin: 09/05/17 10:26 Dose: 2.5 ml Labs: Laboratory Tests 09/05/17 09/05/17 09/05/17 Range/Units 10:17 10:17 12:48 WBC 8.31 (4.0-11.0) K/uL RBC 3.44 L (4.30-5.90) M/uL Hgb 11.1 L (12.0-16.0) g/dL Hct 34.0 L (36.0-46.0) % MCV 98.8 H (80.0-98.0) fL MCH 32.3 H (27.0-32.0) pg MCHC 32.6 (31.0-37.0) g/dL RDW Std Deviation 51.2 (28.0-62.0) fl RDW Coeff of Nadine 14 (11.0-15.0) % Plt Count 167 (150-400) K/uL MPV 9.50 (7.40-12.00) fL Neut % (Auto) 72.6 (48.0-80.0) % Lymph % (Auto) 13.8 L (16.0-40.0) % [place] % (Auto) 9.1 (0.0-15.0) % Eos % (Auto) 4.0 (0.0-7.0) % Baso % (Auto) 0.5 (0.0-1.5) % Neut # (Auto) 6.0 H (1.4-5.7) K/uL Lymph # (Auto) 1.2 (0.6-2.4) K/uL [place] # (Auto) 0.8 (0.0-0.8) K/uL Eos # (Auto) 0.3 (0.0-0.7) K/uL Baso # (Auto) 0.0 (0.0-0.1) K/uL Nucleated RBC % 0.0 /100WBC Nucleated RBCs # 0 K/uL Sodium 141 (136-146) mmol/L Potassium 4.3 (3.5-5.1) mmol/L Chloride 110 (98-110) mmol/L Carbon Dioxide 24 (21-31) mmol/L BUN 20 (6.0-23.0) mg/dL Creatinine 1.2 (0.6-1.5) mg/dL Est Cr Clr Drug Dosing 35.52 mL/min Estimated GFR (MDRD) 43.9 ml/min Glucose 107 (60-110) mg/dL Calcium 8.6 L (8.8-10.8) mg/dL Total Bilirubin 0.3 (0.1-1.5) mg/dL AST 10 (5-40) IU/L ALT 10 (8-54) IU/L Alkaline Phosphatase 54 (40-150) Troponin I < 0.10 (0.0-0.29) NG/ML Total Protein 6.9 (6.0-8.0) g/dL Albumin 3.5 (3.4-4.8) g/dL Globulin 3.4 (2.0-3.5) g/dL Albumin/Globulin Ratio 1.0 L (1.3-2.8) Urine Color YELLOW Urine Appearance CLEAR Urine pH 7.0 (5.0-8.0) Ur Specific [place] 1.015 (1.001-1.035) Urine Protein NEGATIVE (NEGATIVE) mg/dL Urine Glucose (UA) NEGATIVE (NEGATIVE) mg/dL Urine Ketones NEGATIVE (NEGATIVE) mg/dL Urine Occult Blood NEGATIVE (NEGATIVE) Urine Nitrite NEGATIVE (NEGATIVE) Urine Bilirubin NEGATIVE (NEGATIVE) Urine Urobilinogen 0.2 (<2.0) EU/dL Ur Leukocyte Esterase NEGATIVE (NEGATIVE) Urine RBC NONE SEEN (0-2/HPF) Urine WBC 0-1 (0-5/HPF) Ur Squamous Epith Cells FEW Urine Bacteria NOT SEEN (NEGATIVE) Meds: Medications Generic Name Dose Route Start Last Admin Trade Name Freq PRN Reason Stop Dose Admin Sodium Chloride 10 ml 09/05/17 10:02 09/05/17 10:26 Saline Flush FLUSH 10 ml ASDIRECTED PRN Administration Keep Vein Open Sodium Chloride 2.5 ml 09/05/17 10:02 09/05/17 10:26 Saline Flush FLUSH 2.5 ml ASDIRECTED PRN Administration Keep Vein Open Discontinued Medications Generic Name Dose Route Start Last Admin Trade Name Freq PRN Reason Stop Dose Admin Ketorolac Tromethamine 15 mg 09/05/17 12:04 09/05/17 12:28 Toradol IVPUSH 09/05/17 12:05 15 mg ONETIME ONE Administration Meclizine HCl 25 mg 09/05/17 11:15 09/05/17 11:31 Antivert PO 09/05/17 11:16 25 mg ONETIME ONE Administration Metoclopramide HCl 10 mg 09/05/17 11:15 09/05/17 11:31 Reglan IV 09/05/17 11:16 10 mg ONETIME ONE Administration Morphine Sulfate 4 mg 09/05/17 10:16 09/05/17 10:25 Morphine IVPUSH 09/05/17 10:17 4 mg ONETIME ONE Administration Ondansetron HCl 4 mg 09/05/17 10:16 09/05/17 10:25 Zofran IVPUSH 09/05/17 10:17 4 mg ONETIME ONE Administration Departure - Departure Time of Disposition: 13:14 Disposition: Admitted As Inpatient 64 Condition: Good Clinical Impression: Vertigo - Discharge Information Referrals: PCP,Unknown [Primary Care Provider] - Forms: ED Department Discharge - My Orders Last 24 Hours: My Active Orders 09/05/17 10:02 EKG Documentation Completion [RC] STAT Sodium Chloride 0.9% [Saline Flush] 10 ml FLUSH ASDIRECTED PRN Sodium Chloride 0.9% [Saline Flush] 2.5 ml FLUSH ASDIRECTED PRN Saline Lock Insert [OM.PC] Stat 09/05/17 13:12 Patient Status [ADT] Stat - Assessment/Plan Last 24 Hours: My Active Orders 09/05/17 10:02 EKG Documentation Completion [RC] STAT Sodium Chloride 0.9% [Saline Flush] 10 ml FLUSH ASDIRECTED PRN Sodium Chloride 0.9% [Saline Flush] 2.5 ml FLUSH ASDIRECTED PRN Saline Lock Insert [OM.PC] Stat 09/05/17 13:12 Patient Status [ADT] Stat
[2017-09-05] MEDS ORDERED: Ketorolac 30 MG/ML SDV IVPUSH ONE (12:04)
--- NOTE | 2017-09-05 14:44 | PCM.HP ---
H&P History of Present Illness headache Pain Score (Numeric/FACES): 5 - Related Data Allergies/Adverse Reactions: Allergies Allergy/AdvReac Type Severity Reaction Status Date / Time amoxicillin Allergy Hives Verified 09/05/17 10:04 Penicillins Allergy Hives Verified 09/05/17 10:04 Sulfa (Sulfonamide Allergy Hives Verified 09/05/17 10:04 Antibiotics) IV contrast Allergy Hives Uncoded 09/05/17 10:04 Home Medications: Home Meds Aspirin 81 mg PO DAILY 11/02/15 [History] Levothyroxine Sodium [Levo-T] 50 mcg PO ACBREAKFAST 06/01/17 [History] Past Medical History HEENT History: Reports: Impaired Vision Cardiovascular History: Reports: Other (See Below) Other Cardiovascular History: Transferred to [place] for chest pain last year Respiratory History: Reports: Bronchitis, Recurrent, COPD 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: Musculoskeletal History: Reports: Arthritis Other Musculoskeletal History: in back Endocrine/Metabolic History: Reports: Hypothyroidism Oncologic (Cancer) History: Reports: None - Infectious Disease History Infectious Disease History: Reports: Chicken Pox, Mumps, Shingles - Past Surgical History HEENT Surgical History: Reports: None Cardiovascular Surgical History: Reports: None Respiratory Surgical History: Reports: None Endocrine Surgical History: Reports: Thyroidectomy Social & Family History - Family History Family Medical History: Unobtainable Cardiac: Reports: [place] OBGYN: Reports: Musculoskeletal: Reports: Arthritis Neurological: Reports: Alzheimers Disease Oncologic: Reports: Colon, Prostate - Tobacco Use Smoking Status *Q: Former Smoker Years of Tobacco use: 50 Packs/Tins Daily: 1 Used Tobacco, but Quit: Yes Month Tobacco Last Used: 05/2017 Second Hand Smoke Exposure: No - Caffeine Use Caffeine Use: Reports: Coffee - Recreational Drug Use Recreational Drug Use: No Drug Use in Last 12 Months: No Exam - Vital Signs Vital Signs: Last Vital Signs Temp 97.6 F 09/05/17 13:28 Pulse 62 09/05/17 13:33 Resp 16 09/05/17 13:33 BP 120/59 L 09/05/17 13:33 Pulse Ox 100 09/05/17 13:33 Weight: 108 lb 11.006 oz - Patient Data Result Diagrams: 09/05/17 10:17 09/05/17 10:17 *Q Meaningful Use (ADM) - VTE *Q VTE Criteria *Q: - Stroke *Q Stroke Criteria *Q: - AMI *Q AMI Criteria *Q: Orders Last 24hrs: Medication Orders Sodium Chloride (Saline Flush) 10 ml FLUSH ASDIRECTED PRN PRN Reason: Keep Vein Open Last Admin: 09/05/17 10:26 Dose: 10 ml Sodium Chloride (Saline Flush) 2.5 ml FLUSH ASDIRECTED PRN PRN Reason: Keep Vein Open Last Admin: 09/05/17 10:26 Dose: 2.5 ml
[2017-09-05] MEDS ORDERED: Sodium Chloride 0.9% 1,000 ML IV ONE (14:59)
[2017-09-05] MEDS ORDERED: Metoclopramide 10 MG/2 ML SDV IVPUSH PRN (15:35)
[2017-09-05] MEDS ORDERED: Meclizine 25 MG Tab PO PRN (15:37)
[2017-09-05] MEDS ORDERED: diphenhydrAMINE 50 MG/ML SDV IVPUSH PRN (15:38)
--- NOTE | 2017-09-05 15:39 | PCM.HP ---
H&P History of Present Illness - General Date of Service: 09/05/17 Source of Information: Patient History Limitations: Reports: No Limitations - History of Present Illness Initial Comments - Free Text/Narative: Patient 72 years old female with past medical history of repeated episode of vertigo presented to hospital due to severe dizziness , associated with nausea and vomiting that started in am , triggered by positioning her head toward the right.She was feeling the room was spinning around her. Patient also c/o headache , frontal 5/10 I. No weakness , no numbness , no blurry vision , problems with her balance due to vertigo. Onset of Symptoms: Reports: Today, Sudden Duration of Symptoms: Reports: Hour(s): headache Pain Score (Numeric/FACES): 5 - Related Data Allergies/Adverse Reactions: Allergies Allergy/AdvReac Type Severity Reaction Status Date / Time amoxicillin Allergy Hives Verified 09/05/17 10:04 Penicillins Allergy Hives Verified 09/05/17 10:04 Sulfa (Sulfonamide Allergy Hives Verified 09/05/17 10:04 Antibiotics) IV contrast Allergy Hives Uncoded 09/05/17 10:04 Home Medications: Home Meds Aspirin 81 mg PO DAILY 11/02/15 [History] Levothyroxine Sodium [Levo-T] 50 mcg PO ACBREAKFAST 06/01/17 [History] Past Medical History HEENT History: Reports: Impaired Vision Cardiovascular History: Reports: Other (See Below) Other Cardiovascular History: Transferred to [place] for chest pain last year Respiratory History: Reports: Bronchitis, Recurrent, COPD 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: Musculoskeletal History: Reports: Arthritis Other Musculoskeletal History: in back Endocrine/Metabolic History: Reports: Hypothyroidism Oncologic (Cancer) History: Reports: None - Infectious Disease History Infectious Disease History: Reports: Chicken Pox, Mumps, Shingles - Past Surgical History HEENT Surgical History: Reports: None Cardiovascular Surgical History: Reports: None Respiratory Surgical History: Reports: None Endocrine Surgical History: Reports: Thyroidectomy Social & Family History - Family History Family Medical History: Unobtainable Cardiac: Reports: [place] OBGYN: Reports: Musculoskeletal: Reports: Arthritis Neurological: Reports: Alzheimers Disease Oncologic: Reports: Colon, Prostate - Tobacco Use Smoking Status *Q: Former Smoker Years of Tobacco use: 50 Packs/Tins Daily: 1 Used Tobacco, but Quit: Yes Month Tobacco Last Used: 05/2017 Second Hand Smoke Exposure: No - Caffeine Use Caffeine Use: Reports: Coffee - Recreational Drug Use Recreational Drug Use: No Drug Use in Last 12 Months: No H&P Review of Systems - Review of Systems: Review Of Systems: See Below General: Reports: No Symptoms HEENT: Reports: Headaches Pulmonary: Reports: No Symptoms Cardiovascular: Reports: No Symptoms Gastrointestinal: Reports: No Symptoms Genitourinary: Reports: No Symptoms Musculoskeletal: Reports: No Symptoms Skin: Reports: No Symptoms Psychiatric: Reports: No Symptoms Neurological: Reports: Dizziness, Difficulty Walking Exam - Exam Exam: See Below - Vital Signs Vital Signs: Last Vital Signs Temp 97.6 F 09/05/17 13:28 Pulse 62 09/05/17 13:33 Resp 16 09/05/17 13:33 BP 120/59 L 09/05/17 13:33 Pulse Ox 100 09/05/17 13:33 Weight: 108 lb 11.006 oz - Patient Data Result Diagrams: 09/05/17 10:17 09/05/17 10:17 *Q Meaningful Use (ADM) - VTE *Q VTE Criteria *Q: - Stroke *Q Stroke Criteria *Q: - AMI *Q AMI Criteria *Q: - Problem List (1) Benign positional vertigo SNOMED Code(s): 318680026 ICD Code: H81.10 - BENIGN PAROXYSMAL VERTIGO, UNSPECIFIED EAR Status: Acute Current Visit: Yes (2) Tension headache SNOMED Code(s): 265104742 ICD Code: G44.209 - TENSION-TYPE HEADACHE, UNSPECIFIED, NOT INTRACTABLE Status: Acute Current Visit: Yes (3) Hypothyroidism SNOMED Code(s): 32999415 ICD Code: E03.9 - HYPOTHYROIDISM, UNSPECIFIED Status: Chronic Current Visit: No Qualifiers: Hypothyroidism type: unspecified Qualified Code(s): E03.9 - Hypothyroidism , unspecified (4) Dehydration SNOMED Code(s): 14307105 ICD Code: E86.0 - DEHYDRATION Status: Acute Current Visit: Yes Problem List Initiated/Reviewed/Updated: Yes Orders Last 24hrs: Active Orders 24 hr Category Date Time Status Patient Status [ADT] Routine ADT 09/05/17 14:46 Active Antiembolic Devices [RC] PER UNIT ROUTINE Care 09/05/17 14:55 Active Up With Assistance [RC] ASDIRECTED Care 09/05/17 14:45 Active VTE/DVT Education [RC] PER UNIT ROUTINE Care 09/05/17 14:46 Active Vital Signs [RC] Q4H Care 09/05/17 14:46 Active Consult to Physical Therapy [PT Evaluation and Cons 09/05/17 15:01 Active Treatment] [CONS] Routine Nothing per Oral Now Diet [DIET] Diet 09/05/17 Dinner Active BASIC METABOLIC PANEL,BMP [CHEM] AM Lab 09/06/17 05:11 Ordered BASIC METABOLIC PANEL,BMP [CHEM] AM Lab 09/07/17 05:11 Ordered BASIC METABOLIC PANEL,BMP [CHEM] AM Lab 09/08/17 05:11 Ordered BASIC METABOLIC PANEL,BMP [CHEM] AM Lab 09/09/17 05:11 Ordered CBC W/O DIFF,HEMOGRAM [HEME] AM Lab 09/06/17 05:11 Ordered CBC W/O DIFF,HEMOGRAM [HEME] AM Lab 09/07/17 05:11 Ordered CBC W/O DIFF,HEMOGRAM [HEME] AM Lab 09/08/17 05:11 Ordered CBC W/O DIFF,HEMOGRAM [HEME] AM Lab 09/09/17 05:11 Ordered Aspirin Med 09/06/17 09:00 Active 81 mg PO DAILY Levothyroxine [Synthroid] Med 09/06/17 07:30 Active 50 mcg PO ACBREAKFAST Meclizine [Antivert] Med 09/05/17 15:37 Ordered 25 mg PO Q6H PRN Metoclopramide [Reglan] Med 09/05/17 15:35 Ordered 10 mg IVPUSH Q6H PRN Sodium Chloride 0.9% [Normal Saline] 1,000 ml Med 09/05/17 14:59 Active IV .Bolus Sodium Chloride 0.9% [Saline Flush] Med 09/05/17 14:45 Active 10 ml FLUSH ASDIRECTED PRN Sodium Chloride 0.9% [Saline Flush] Med 09/05/17 14:45 Active 2.5 ml FLUSH ASDIRECTED PRN diphenhydrAMINE [Benadryl] Med 09/05/17 15:38 Ordered 50 mg IVPUSH Q6H PRN Peripheral IV Insertion Adult [OM.PC] Routine Oth 09/05/17 14:45 Ordered Sequential Compression Device [OM.PC] Per Unit Routine Oth 09/05/17 14:51 Ordered Resuscitation Status Routine Resus Stat 09/05/17 14:45 Ordered Medication Orders Aspirin (Aspirin) 81 mg PO DAILY LIBAN Sodium Chloride (Normal Saline) 1,000 mls @ 999 mls/hr IV .Bolus ONE Stop: 09/05/17 15:59 Last Admin: 09/05/17 15:15 Dose: 999 mls/hr Levothyroxine Sodium (Synthroid) 50 mcg PO ACBREAKFAST LIBAN Sodium Chloride (Saline Flush) 10 ml FLUSH ASDIRECTED PRN PRN Reason: Keep Vein Open Last Admin: 09/05/17 10:26 Dose: 10 ml Sodium Chloride (Saline Flush) 2.5 ml FLUSH ASDIRECTED PRN PRN Reason: Keep Vein Open Last Admin: 09/05/17 10:26 Dose: 2.5 ml Sodium Chloride (Saline Flush) 10 ml FLUSH ASDIRECTED PRN PRN Reason: Keep Vein Open Sodium Chloride (Saline Flush) 2.5 ml FLUSH ASDIRECTED PRN PRN Reason: Keep Vein Open Ct head - negative A/P BPV Dehydration tension headache Hypothyroidism Plan Will admit patient to Observation. Ns 1 L iv bolus Iv fluids nS at 150 cc/h tylenol 650 mg po q 6 h prn for headache levothyroxine 50 mcg po daily
[2017-09-05] MEDS ORDERED: Acetaminophen 325 MG Tab PO ONE (17:54)
[2017-09-05] MEDS ORDERED: Ketorolac 15 MG/ML SDV IVPUSH ONE (18:00)
[2017-09-05] MEDS: Sodium Chloride 0.9% 1,000 ML IV SCH (18:01)
[2017-09-06] MEDS: Sodium Chloride 0.9% 1,000 ML IV SCH ×4 (00:53→20:39)
[2017-09-06] MEDS: Levothyroxine 50 MCG Tab PO SCH (06:38)
[2017-09-06] MEDS: Aspirin 81 MG Tab.Chew PO SCH (09:00)
[2017-09-06] MEDS ORDERED: Acetaminophen 325 MG Tab PO PRN (09:19)
[2017-09-06] MEDS: Pregabalin 25 MG Cap PO SCH ×2 (09:47→20:36)
--- NOTE | 2017-09-06 10:27 | PCM.PN ---
- General Info Date of Service: 09/06/17 Subjective Update: still experiencing dizziness. Had received one dose of meclizine for continuous vertigo last night. - Review of Systems General: Reports: No Symptoms HEENT: Reports: No Symptoms Pulmonary: Reports: No Symptoms Cardiovascular: Reports: No Symptoms Gastrointestinal: Reports: No Symptoms Musculoskeletal: Reports: No Symptoms Skin: Reports: No Symptoms Neurological: Reports: Dizziness, Weakness Psychiatric: Reports: No Symptoms - Patient Data Vitals - Most Recent: Last Vital Signs Temp 98.3 F 09/06/17 08:00 Pulse 64 09/06/17 08:00 Resp 12 09/06/17 08:00 BP 136/57 L 09/06/17 08:00 Pulse Ox 98 09/06/17 08:00 Weight - Most Recent: 49.3 kg I&O - Last 24 Hours: Intake & Output 09/05/17 09/06/17 09/06/17 22:59 06:59 14:59 Intake Total 0 1900 Output Total 100 1800 Balance -100 100 Lab Results Last 24 Hours: Laboratory Results - last 24 hr 09/06/17 09/06/17 Range/Units 04:54 04:54 WBC 6.66 (4.0-11.0) K/uL RBC 3.26 L (4.30-5.90) M/uL Hgb 10.2 L (12.0-16.0) g/dL Hct 32.3 L (36.0-46.0) % MCV 99.1 H (80.0-98.0) fL MCH 31.3 (27.0-32.0) pg MCHC 31.6 (31.0-37.0) g/dL RDW Std Deviation 52.1 (28.0-62.0) fl RDW Coeff of Nadine 14 (11.0-15.0) % Plt Count 161 (150-400) K/uL MPV 9.90 (7.40-12.00) fL Nucleated RBC % 0.0 /100WBC Nucleated RBCs # 0 K/uL Sodium 145 (136-146) mmol/L Potassium 4.1 (3.5-5.1) mmol/L Chloride 118 H (98-110) mmol/L Carbon Dioxide 21 (21-31) mmol/L BUN 4 L (6.0-23.0) mg/dL Creatinine 1.0 (0.6-1.5) mg/dL Est Cr Clr Drug Dosing 38.41 mL/min Estimated GFR (MDRD) 54.2 ml/min Glucose 82 (60-110) mg/dL Calcium 7.7 L (8.8-10.8) mg/dL Med Orders - Current: Current Medications Acetaminophen (Tylenol) 650 mg PO Q6H PRN PRN Reason: Headache Aspirin (Aspirin) 81 mg PO DAILY [facility] Last Admin: 09/06/17 09:00 Dose: 81 mg Diphenhydramine HCl (Benadryl) 50 mg IVPUSH Q6H PRN PRN Reason: vertigo Sodium Chloride (Normal Saline) 1,000 mls @ 150 mls/hr IV ASDIRECTED [facility] Last Admin: 09/06/17 07:51 Dose: 150 mls/hr Levothyroxine Sodium (Synthroid) 50 mcg PO ACBREAKFAST [facility] Last Admin: 09/06/17 06:38 Dose: 50 mcg Meclizine HCl (Antivert) 25 mg PO Q6H PRN PRN Reason: vertigo Metoclopramide HCl (Reglan) 5 mg IVPUSH Q6H PRN PRN Reason: nausea and vomiting Pregabalin (Lyrica) 25 mg PO BID [facility] Last Admin: 09/06/17 09:47 Dose: 25 mg Sodium Chloride (Saline Flush) 10 ml FLUSH ASDIRECTED PRN PRN Reason: Keep Vein Open Last Admin: 09/05/17 10:26 Dose: 10 ml Sodium Chloride (Saline Flush) 2.5 ml FLUSH ASDIRECTED PRN PRN Reason: Keep Vein Open Last Admin: 09/05/17 10:26 Dose: 2.5 ml Sodium Chloride (Saline Flush) 10 ml FLUSH ASDIRECTED PRN PRN Reason: Keep Vein Open Sodium Chloride (Saline Flush) 2.5 ml FLUSH ASDIRECTED PRN PRN Reason: Keep Vein Open Discontinued Medications Acetaminophen (Tylenol) 650 mg PO NOW ONE Stop: 09/05/17 17:55 Last Admin: 09/05/17 18:01 Dose: 650 mg Sodium Chloride (Normal Saline) 1,000 mls @ 999 mls/hr IV .Bolus ONE Stop: 09/05/17 15:59 Last Admin: 09/05/17 15:15 Dose: 999 mls/hr Ketorolac Tromethamine (Toradol) 15 mg IVPUSH ONETIME ONE Stop: 09/05/17 12:05 Last Admin: 09/05/17 12:28 Dose: 15 mg Ketorolac Tromethamine (Toradol) 15 mg IVPUSH ONETIME ONE Stop: 09/05/17 18:01 Meclizine HCl (Antivert) 25 mg PO ONETIME ONE Stop: 09/05/17 11:16 Last Admin: 09/05/17 11:31 Dose: 25 mg Metoclopramide HCl (Reglan) 10 mg IV ONETIME ONE Stop: 09/05/17 11:16 Last Admin: 09/05/17 11:31 Dose: 10 mg Morphine Sulfate (Morphine) 4 mg IVPUSH ONETIME ONE Stop: 09/05/17 10:17 Last Admin: 09/05/17 10:25 Dose: 4 mg Ondansetron HCl (Zofran) 4 mg IVPUSH ONETIME ONE Stop: 09/05/17 10:17 Last Admin: 09/05/17 10:25 Dose: 4 mg - Exam General: Alert, Oriented, Cooperative HEENT: Pupils Equal, EOMI Neck: Supple, Trachea Midline Lungs: Clear to Auscultation, Normal Respiratory Effort Cardiovascular: Regular Rate, Regular Rhythm GI/Abdominal Exam: Normal Bowel Sounds, Soft Extremities: Normal Inspection - Problem List Review Problem List Initiated/Reviewed/Updated: Yes - Plan Plan:: Verigo most likely secondary to Benign positional vertigo Physical therapy evaluating patient for possible ruma's maneuver. continue IVF tylenol prn
[2017-09-06] MEDS: Acetaminophen/HYDROcodone 325-5 MG Tab PO PRN ×2 (10:53→16:55)
[2017-09-07] MEDS: Sodium Chloride 0.9% 1,000 ML IV SCH (03:26)
[2017-09-07 05:30] LABS: CHLORIDE,CL 117 mmol/L (98-110); SODIUM,NA 145 mmol/L (136-146)
[2017-09-07] MEDS: Levothyroxine 50 MCG Tab PO SCH (06:37)
[2017-09-07 07:24] VITALS: BP 159/71
[2017-09-07] MEDS: Aspirin 81 MG Tab.Chew PO SCH (09:11)
[2017-09-07] MEDS: Pregabalin 25 MG Cap PO SCH (09:15)
--- NOTE | 2017-09-07 09:56 | PCM.DCSUM1 ---
Discharge Summary - Hospital Course Free Text/Narrative:: 72 yo female admitted for vertigo and dehydration. Head CT Negative. She was give one dose of meclizine and hydrated with IVF. She complained of headache where norco relieved her pain. Her symptoms improved as physical therapy worked with her. She was noted to have elevated blood pressure. She does not have history of HTN. Physical therapy recommended walker but she had refused where she states it is not feasible for her to use it. She did receive zoster vaccine. She did have shingles in forehead few weeks. She is follow up with her PCP regarding her blood pressure. She voiced understanding. - Discharge Data Discharge Date: 09/07/17 Discharge Disposition: Home, Self-Care 01 Condition: Fair - Patient Summary/Data Consults: Consultations 09/05/17 15:01 Consult to Physical Therapy [PT Evaluation and Treatment] [CONS] Routine - Patient Instructions Diet: Regular Diet as Tolerated Activity: As Tolerated Driving: Do Not Drive Showering/Bathing: May Shower Notify Provider of: Fever, Increased Pain, Swelling and Redness, Drainage, Nausea and/or Vomiting Other/Special Instructions: please follow up with your doctor regarding blood pressure - Discharge Plan Home Medications: Home Meds Aspirin 81 mg PO DAILY 11/02/15 [History] Levothyroxine Sodium [Levo-T] 50 mcg PO ACBREAKFAST 06/01/17 [History] Patient Handouts: Vertigo, [id number], Dehydration, Adult, [id number] - General Info Date of Service: 09/07/17 - Review of Systems General: Reports: No Symptoms HEENT: Reports: No Symptoms Pulmonary: Reports: No Symptoms Cardiovascular: Reports: No Symptoms Gastrointestinal: Reports: No Symptoms Musculoskeletal: Reports: No Symptoms Skin: Reports: No Symptoms Neurological: Reports: No Symptoms Psychiatric: Reports: No Symptoms - Patient Data Vitals - Most Recent: Last Vital Signs Temp 97.5 F 09/07/17 07:14 Pulse 73 09/07/17 07:14 Resp 18 09/07/17 07:14 BP 159/71 H 09/07/17 07:14 Pulse Ox 96 09/07/17 07:14 Weight - Most Recent: 49.3 kg I&O - Last 24 hours: Intake & Output 09/06/17 09/07/17 09/07/17 22:59 06:59 14:59 Intake Total 4223 2060 Output Total 4381 4933 Balance 1073 -3390 Lab Results - Last 24 hrs: Laboratory Results - last 24 hr 09/07/17 09/07/17 Range/Units 05:00 05:00 WBC 8.30 (4.0-11.0) K/uL RBC 3.56 L (4.30-5.90) M/uL Hgb 11.4 L (12.0-16.0) g/dL Hct 35.3 L (36.0-46.0) % MCV 99.2 H (80.0-98.0) fL MCH 32.0 (27.0-32.0) pg MCHC 32.3 (31.0-37.0) g/dL RDW Std Deviation 51.3 (28.0-62.0) fl RDW Coeff of Nadine 14 (11.0-15.0) % Plt Count 168 (150-400) K/uL MPV 9.60 (7.40-12.00) fL Nucleated RBC % 0.0 /100WBC Nucleated RBCs # 0 K/uL Sodium 145 (136-146) mmol/L Potassium 4.1 (3.5-5.1) mmol/L Chloride 117 H (98-110) mmol/L Carbon Dioxide 22 (21-31) mmol/L BUN < 1 L (6.0-23.0) mg/dL Creatinine 1.1 (0.6-1.5) mg/dL Est Cr Clr Drug Dosing 34.92 mL/min Estimated GFR (MDRD) 48.6 ml/min Glucose 93 (60-110) mg/dL Calcium 8.0 L (8.8-10.8) mg/dL Med Orders - Current: Current Medications Hydrocodone Bitart/Acetaminophen ([place] 325-5 Mg) 1 tab PO Q6H PRN PRN Reason: Pain Last Admin: 09/06/17 16:55 Dose: 1 tab Aspirin (Aspirin) 81 mg PO DAILY [facility] Last Admin: 09/07/17 09:11 Dose: 81 mg Diphenhydramine HCl (Benadryl) 50 mg IVPUSH Q6H PRN PRN Reason: vertigo Sodium Chloride (Normal Saline) 1,000 mls @ 150 mls/hr IV ASDIRECTED [facility] Last Admin: 09/07/17 03:26 Dose: 150 mls/hr Levothyroxine Sodium (Synthroid) 50 mcg PO ACBREAKFAST [facility] Last Admin: 09/07/17 06:37 Dose: 50 mcg Meclizine HCl (Antivert) 25 mg PO Q6H PRN PRN Reason: vertigo Metoclopramide HCl (Reglan) 5 mg IVPUSH Q6H PRN PRN Reason: nausea and vomiting Pregabalin (Lyrica) 25 mg PO BID [facility] Last Admin: 09/07/17 09:15 Dose: 25 mg Sodium Chloride (Saline Flush) 10 ml FLUSH ASDIRECTED PRN PRN Reason: Keep Vein Open Last Admin: 09/05/17 10:26 Dose: 10 ml Sodium Chloride (Saline Flush) 2.5 ml FLUSH ASDIRECTED PRN PRN Reason: Keep Vein Open Last Admin: 09/05/17 10:26 Dose: 2.5 ml Sodium Chloride (Saline Flush) 10 ml FLUSH ASDIRECTED PRN PRN Reason: Keep Vein Open Sodium Chloride (Saline Flush) 2.5 ml FLUSH ASDIRECTED PRN PRN Reason: Keep Vein Open Discontinued Medications Acetaminophen (Tylenol) 650 mg PO NOW ONE Stop: 09/05/17 17:55 Last Admin: 09/05/17 18:01 Dose: 650 mg Acetaminophen (Tylenol) 650 mg PO Q6H PRN PRN Reason: Headache Sodium Chloride (Normal Saline) 1,000 mls @ 999 mls/hr IV .Bolus ONE Stop: 09/05/17 15:59 Last Admin: 09/05/17 15:15 Dose: 999 mls/hr Ketorolac Tromethamine (Toradol) 15 mg IVPUSH ONETIME ONE Stop: 09/05/17 12:05 Last Admin: 09/05/17 12:28 Dose: 15 mg Ketorolac Tromethamine (Toradol) 15 mg IVPUSH ONETIME ONE Stop: 09/05/17 18:01 Meclizine HCl (Antivert) 25 mg PO ONETIME ONE Stop: 09/05/17 11:16 Last Admin: 09/05/17 11:31 Dose: 25 mg Metoclopramide HCl (Reglan) 10 mg IV ONETIME ONE Stop: 09/05/17 11:16 Last Admin: 09/05/17 11:31 Dose: 10 mg Morphine Sulfate (Morphine) 4 mg IVPUSH ONETIME ONE Stop: 09/05/17 10:17 Last Admin: 09/05/17 10:25 Dose: 4 mg Ondansetron HCl (Zofran) 4 mg IVPUSH ONETIME ONE Stop: 09/05/17 10:17 Last Admin: 09/05/17 10:25 Dose: 4 mg - Exam General: Reports: Alert, Oriented HEENT: Reports: Pupils Equal, EOMI Neck: Reports: Supple, Trachea Midline Lungs: Reports: Clear to Auscultation, Normal Respiratory Effort Cardiovascular: Reports: Regular Rate, Regular Rhythm GI/Abdominal Exam: Normal Bowel Sounds, Soft Back Exam: Reports: Normal Inspection, Full Range of Motion Extremities: Normal Inspection Skin: Reports: Warm, Dry, Intact Neurological: Reports: No New Focal Deficit Psy/Mental Status: Reports: Alert, Normal Affect, Normal Mood *Q Meaningful Use (DIS) - VTE *Q VTE Criteria *Q: - Stroke *Q Stroke Criteria *Q: - AMI *Q AMI Criteria *Q:
== END 2017-09-07 11:00 | disposition home or self-care (01) ==
LOC: MW.ED 09:51 → MW.MS 13:25
PROVIDERS: ADMIT Internal Medicine; ATTEND Internal Medicine
DX: H81.10 Benign paroxysmal vertigo, unspecified ear (principal); J45.909 Unspecified asthma, uncomplicated; E86.0 Dehydration; R51 Headache; E89.0 Postprocedural hypothyroidism; M19.90 Unspecified osteoarthritis, unspecified site; Z88.0 Allergy status to penicillin; Z88.2 Allergy status to sulfonamides; Z91.041 Radiographic dye allergy status; Z79.82 Long term (current) use of aspirin; Z79.899 Other long term (current) drug therapy
CPT/HCPCS: 36415; 70450; 80048; 80053; 81001; 84484; 85025; 85027; 93005; 96374; 96375; 97162; 97530; 99285; A9270; J1885; J2270; J2405; J2765; J7040; 96361; G0378